=== PATIENT | female | born 1955 | race Caucasian/White ===

== ENCOUNTER → 2018-12-13 | Outpatient (CLI) | payer OTHER ==
--- NOTE | 2018-12-14 00:06 | XR ---
EXAMINATION TYPE: XR chest 2V DATE OF EXAM: 12/13/2018 COMPARISON: 10/29/2014 HISTORY: 63-year-old female preoperative evaluation TECHNIQUE: Frontal and lateral views FINDINGS: Heart normal size. Mild elongation thoracic aorta. Mild interstitial prominence has a chronic appeara nce. On the vasculature within normal limits. No consolidation or pleural effusion. IMPRESSION: No acute cardiopulmonary process.
== END | disposition home or self-care (01) ==
LOC: RADXRYALE 16:20
PROVIDERS: ATTEND Orthopaedic Surgery
DX: Z01.818 Encounter for other preprocedural examination (principal)
CPT/HCPCS: 71046

== ENCOUNTER → 2018-12-28 | Outpatient (CLI) | payer MEDICARE | END | disposition home or self-care (01) | LOC: LABPAT 13:08 | PROVIDERS: ATTEND Orthopaedic Surgery | DX: Z01.812 Encounter for preprocedural laboratory examination (principal) | CPT/HCPCS: 87070 ==

== ENCOUNTER → 2018-12-28 | Outpatient (CLI) | payer MEDICARE ==
--- NOTE | 2018-12-28 14:38 | CT ---
EXAMINATION TYPE: CT chest w con DATE OF EXAM: 12/28/2018 COMPARISON: NONE HISTORY: Aorta disorder. CT DLP: 650.36 mGycm. Automated Exposure Control for Dose Reduction was Utilized. TECHNIQUE: CT scan of the thorax is performed following with IV Contrast, patient injected with 100 mL of Isovue 300. FINDINGS: LUNGS: The lungs are grossly clear, there is no concerning parenchymal mass or nodule identified. T here is no pleural effusion or pneumothorax seen. The tracheobronchial tree is patent. MEDIASTINUM: There are no greater than 1 cm hilar or mediastinal lymph nodes. No pericardial effusi on is seen. Ascending aorta measures up to 3.3 cm in diameter at main pulmonary bifurcation axial i mage 25. OTHER: Occasional diverticula are seen at level of splenic flexure. Slight S-shaped scoliotic curvatu re. A 1.5 cm simple-appearing cyst laterally upper pole of the left kidney is seen. IMPRESSION: No thoracic aortic aneurysm. No suspicious acute pulmonary process.
== END | disposition home or self-care (01) ==
LOC: RADCTMAIN 13:22
PROVIDERS: ATTEND Internal Medicine
DX: I77.9 Disorder of arteries and arterioles, unspecified (principal)
CPT/HCPCS: 82565; 84520; 71260; 36415; Q9967

== ENCOUNTER 2019-01-01 06:12 | Inpatient (IN) | payer MEDICARE, OTHER ==
[2018-12-31 08:27] VITALS: BMI 30.9
--- NOTE | 2018-12-31 13:35 | HP ---
HISTORY AND PHYSICAL CHIEF COMPLAINT: Right knee pain. HISTORY OF PRESENT ILLNESS: The patient is a 63-year-old retired female who presents with progressive right knee pain secondary to osteoarthrosis despite conservative measures. She continues to have pain that limits her normal function and activities. PAST MEDICAL HISTORY: Significant for coronary artery disease, depression and hypercholesterolemia. PAST SURGICAL HISTORY: Negative. CURRENT MEDICATIONS: 1. Lipitor. 2. Lunesta. 3. Aspirin. 4. Badin. ALLERGIES: She denies drug allergies. FAMILY HISTORY: Significant for cancer. SOCIAL HISTORY: Negative for current tobacco or alcohol use. REVIEW OF SYSTEMS: Sixteen-point review of systems otherwise reviewed and is noncontributory. PHYSICAL EXAMINATION: On examination, the patient is approximately 5 feet 3 inches, 173 pounds of endomorphic habitus. HEENT exam is nonfocal. Neck is supple. She has painless passive motion of the right hip. Straight leg raise is negative. Active motion right knee -10 to 125 degrees of flexion. She is tender about the medial joint line. She has mild effusion. Collaterals are stable, Coleen is negative, Janene's is equivocal. She has genu varum alignment. Her distal neurovascular exam appears intact in the right lower extremity. Previous x-rays of the right knee obtained in the office show severe medial compartment osteoarthrosis. IMPRESSION: 1. Right knee severe medial compartment osteoarthrosis. 2. History of coronary artery disease. RECOMMENDATIONS: I talked to the patient at length regarding her condition and treatment options. At this point, she is quite symptomatic and limited because of pain related to her osteoarthrosis despite conservative measures. After thorough discussion, she opts to proceed with surgery. We will plan to proceed with right total knee arthroplasty. We will institute DVT prophylaxis postoperatively. MMODL / IJN: [id number] /
[~2019-01-01 06:12] MED LIST: ACETAMINOPHEN TAB 500 MG TAB PO ONE; LIDOCAINE 1% 20 ML VIAL (10MG/ML) FOR IV START INTRADERMA PRN; MELOXICAM 7.5 MG TAB PO ONE; TRANEXAMIC ACID 1,000 MG in SODIUM CHLORIDE 0.9% 100 ML IVPB ONE; ceFAZolin IN SWFI 2 GM/20 ML SYRINGE IVP ONE
[2019-01-01 07:28] LABS: Basophils % (A) 1 %; Eosinophils # (A) 0.2 k/uL (0-0.7); Eosinophils % (A) 3 %; HCT 38.9 % (34.0-46.0); HGB 13.1 gm/dL (11.4-16.0); Lymphocytes # (A) 1.3 k/uL (1.0-4.8); Lymphocytes % (A) 24 %; MCH 29.4 pg (25.0-35.0); MCHC 33.6 g/dL (31.0-37.0); MCV 87.4 fL (80.0-100.0); Mean Platelet Volume 7.5; Monocytes # (A) 0.3 k/uL (0-1.0); Monocytes % (A) 5 %; Neutrophils # (A) 3.7 k/uL (1.3-7.7); Neutrophils % (A) 65 %; Platelet Count 225 k/uL (150-450); RBC 4.45 m/uL (3.80-5.40); RDW 13.8 % (11.5-15.5); WBC 5.6 k/uL (3.8-10.6)
[2019-01-01 07:28] LABS: Appearance,Urine Clear (Clear); Bilirubin,Urine Negative (Negative); Blood,Urine Negative (Negative); Color,Urine Light Yellow; Glucose,Urine (UA) Negative (Negative); Ketones,Urine Negative (Negative); Leukocyte Esterase,Urine Small (Negative); Mucus,Urine Rare /hpf; Nitrite,Urine Negative (Negative); Protein,Urine Negative (Negative); RBC,Urine 1 /hpf (0-5); Specific Gravity,Urine 1.012 (1.001-1.035); Squamous Epithelial Cell,Urine <1 /hpf (0-4); Urobilinogen,Urine <2.0 mg/dL (<2.0); WBC,Urine 6 /hpf (0-5)
[2019-01-01 07:31] LABS: INR 0.9 (<1.2); Partial Thromboplastin Time 24.6 sec (22.0-30.0); Prothrombin Time 9.6 sec (9.0-12.0)
[2019-01-01 07:42] LABS: Albumin 4.1 g/dL (3.5-5.0); Calcium 9.6 mg/dL (8.4-10.2); Potassium 4.3 mmol/L (3.5-5.1); Total Bilirubin 0.3 mg/dL (0.2-1.3); Total Protein 6.6 g/dL (6.3-8.2)
[2019-01-01] MEDS ORDERED: MIDAZOLAM PF (FBP) 2 MG/2 ML VIAL IVP ONE (07:43)
[2019-01-01] MEDS ORDERED: PROPOFOL 10 MG/ML 20 ML VIAL IV ONE (07:54)
[2019-01-01] MEDS ORDERED: PHENYLEPHRINE-0.9% NACL SYG 1 MG/10 ML SYRINGE ONE (07:54)
[2019-01-01] MEDS ORDERED: SODIUM CHLORIDE 0.9% 100 ML BAG ONE (07:54)
[2019-01-01] MEDS ORDERED: TRANEXAMIC ACID 1,000 MG/10 ML VIAL ONE (07:54)
[2019-01-01] MEDS ORDERED: MIDAZOLAM 2 MG/2 ML VIAL ONE (07:54)
[2019-01-01] MEDS ORDERED: fentaNYL (PF) 50 MCG/ML 2 ML AMP ONE (07:54)
[2019-01-01] MEDS ORDERED: DEXAMETHASONE SOD PHOSPHATE 10 MG/ML 1 ML VIAL IV ONE (07:56)
[2019-01-01] MEDS ORDERED: ONDANSETRON 4 MG/2 ML VIAL IVP ONE (07:56)
[2019-01-01] MEDS: LACTATED RINGERS 1,000 ML IV SCH ×2 (07:56→14:30)
[2019-01-01] MEDS ORDERED: ceFAZolin 3,000 MG in SODIUM CHLORIDE 0.9% IRRIGATIO 3,000 ML IRRIGATION ONE (08:00)
[2019-01-01] MEDS ORDERED: ROPIVACAINE 246.25 MG, EPINEPHrine 0.5 MG, KETOROLAC 30 MG, cloNIDine HCL/PF 80 MCG, WA... MISCELLANE ONE ×5 (08:09)
[2019-01-01] MEDS ORDERED: LACTATED RINGERS 1,000 ML IV ONE (09:15)
--- NOTE | 2019-01-01 09:16 | P.ANPRN ---
Procedure Note - Anesthesia - Nerve Block Performed Right Adductor Canal Infusion Time Out Performed: Yes Date of Procedure: 01/01/19 Procedure Start Time: 07:43 Procedure Stop Time: 07:53 Location of Patient Procedure: PreOp Indication: Acute Post-Operative Pain, Requested by physician Sedation Type: Sedate with meaningful contact maintained Preparation: Sterile Prep, Sterile Dressing Position: Supine Catheter: Indwelling Needle Types: Pajunk Needle Gauge: 21 Technique: Ultrasound (ropi .5% 20cc) Blood Aspirated: No Pain Paresthesia on Injection Noted: No Resistance on Injection: Normal Events: Uneventful and Well Tolerated
[2019-01-01] MEDS ORDERED: ROPIVACAINE 1,100 MG, SODIUM CHLORIDE 0.9% 500 ML 330 ML MISCELLANE PRN ×2 (09:17)
[2019-01-01] MEDS ORDERED: NALOXONE 0.4 MG/ML 1 ML VIAL IV PRN (09:34)
[2019-01-01] MEDS ORDERED: MAGNESIUM HYDROXIDE 2,400 MG/10 ML CUP PO PRN (09:34)
[2019-01-01] MEDS ORDERED: HYDROcodone/APAP 5-325MG 1 EACH TAB PO PRN (09:34)
--- NOTE | 2019-01-01 10:05 | P.OP ---
Date of Procedure: 01/01/19 Preoperative Diagnosis: Right knee severe tricompartmental osteoarthrosis Postoperative Diagnosis: Same Procedure(s) Performed: Right total knee arthroplastycementedcruciate retaining Implants: [employer] journey 2 size 5 cemented femoral component, size 4 cemented tibial component, 9 mm articular surface, 29 mm cemented patellar component. This is a cruciate retaining implant. Anesthesia: regional, local, spinal Surgeon: Aakash Peña Insurance Investigator #1: Amauri Tiwari Estimated Blood Loss (ml): 50 Pathology: other (Bone fragments) Condition: stable Disposition: PACU Indications for Procedure: The patient's a 63-year-old female presents with progressive right knee pain secondary to osteoarthrosis despite conservative measures. A discussion of the risks and benefits of operative intervention versus continued conservative measures was made with patient. She opted to proceed with surgery. Operative risks to include infection, neurovascular injury, development of blood clots, possible component loosening, possible component failure and need for subsequent procedures was discussed. Informed consent was obtained. Operative Findings: As below Description of Procedure: The patient was brought to the operating room, and after induction of spinal anesthesia the right lower extremity was prepped and draped in a normal fashion. The tourniquet was inflated to 270 mmHg. A longitudinal incision extending 3 finger breaths above the superior pole of the patella extending to the medial aspect the tibial tubercle was then made. The skin and subcutaneous tissues were divided sharply. Electrocautery was used for hemostasis. A medial parapatellar arthrotomy was then performed. The medial soft tissues to include the superficial and deep portions of the medial collateral ligament as well as the medial hamstring tendons were elevated subperiosteally. The proximal medial tibia osteophytes were carefully removed. The patella was everted. The knee was flexed. A portion of the retropatellar fat pad was excised sharply. The anterior cruciate ligament was sacrificed. A starting hole was made in the distal femur 1 cm anterior to the posterior cruciate origin. An intramedullary femoral guide was gently inserted planning on 5 valgus distal cut with 9 mm distal resection. The cutting block was pinned in place. The distal cut was then made. The posterior referencing sizing guide was utilized. 3 of external rotation was built into the system and verified off the trans- epicondylar axis and the posterior condyles. I felt size 5 was most appropriate. The cutting block was pinned in place. The anterior, posterior, and chamfer cuts were then made. The bone fragments were removed. The trial size 5 femoral component was then placed and was fully seated. There was good anterior to posterior and medial to lateral fit. The distal peg holes were then drilled. The trial component was then removed. Attention was then paid towards preparing the proximal tibia. An extra medullary guide was utilized in line with the tibial shaft and second metatarsal distally. A 3 posterior slope was planned. I planned on 2 mm resection from the medial compartment. The cutting block was pinned in place. The proximal tibial cut was then made. The bone was removed in one fragment. The remnants of the medial and lateral menisci were excised the capsule junction with electrocautery. The tibia sized most appropriately at size 4. The posterior osteophytes off the distal femur were carefully removed with a curved osteotome. The trial tibial and femoral components were placed along with a 9 millimeters articular surface. I was able to obtain full flexion and extension with good stability with varus and valgus stress. After several flexion and extension cycles, the tibial rotation was marked with electrocautery in line with the medial one third of the tibial tubercle. Attention was then paid towards preparing the patella. A patella reamer was utilized taking this down to 14 mm of bone stock. A good flush cut was made. The patella sized most appropriately at 29 millimeters. The peg holes were then drilled. The trial component was placed. The knee was taken through a range of motion. I had good patellofemoral tracking with no hands technique. The trial components were then removed. The tibia was prepared in the appropriate rotation with appropriate drill and keel punch. The flexion and extension gaps were checked and felt to be symmetric. The posterior soft tissues were injected with ropivacaine. The bony surfaces were prepared with pulsatile lavage and dried. The deep tibial component was then cemented in place and was fully seated. Excess cement was removed. The femoral component was cemented in place and was fully seated. Again excess cement was removed. The trial 9 millimeters surface was then inserted in the knee was put in full extension. The patella component was cemented in place. After the cement had sufficiently hardened, the knee was again taken through a range of motion. Again there was good stability in flexion and extension with varus and valgus stress. The trial articular surface was then removed. The final articular surface was placed and was impacted. Care was taken to avoid any soft tissue interposition. Pulsatile lavage was again utilized. The tourniquet was deflated with approximately 55 minutes total tourniquet time. There was minimal drainage therefore a deep drain was not placed. The medial parapatellar arthrotomy was then closed with #2 Ethibond suture. The subcutaneous tissues were reapproximated interrupted 2-0 Vicryl sutures. The skin was reapproximated with 3-0 subarticular strata fix suture. Skin tape and adhesive was applied. A sterile dressing was applied. The patient was then awoken from sedation and transferred to recovery room in good condition. Blood loss was estimated at 50 milliliters. No complications were incurred. Sponge and needle counts were correct at the end the case. Brenton RAHMAN assisted during the major components this case to include exposure, bone resection, and implantation.
--- NOTE | 2019-01-01 10:45 | XR ---
Limited right knee HISTORY: Status post right knee arthroplasty 2 views of the right knee Patient is status post right knee arthroplasty. There is anatomic alignment. Lucency in the soft tiss ues is postoperative. IMPRESSION: Orthopedic follow-up.
[2019-01-01] MEDS: HYDROcodone/APAP 5-325MG 1 EACH TAB PO PRN ×2 (12:17→14:27)
[2019-01-01] MEDS: ONDANSETRON 4 MG/2 ML VIAL IVP PRN ×2 (12:18→21:01)
[2019-01-01] MEDS ORDERED: TEMAZEPAM 15 MG CAP PO PRN (15:39)
--- NOTE | 2019-01-01 15:45 | P.CONS ---
History of Present Illness - Reason for Consult Perioperative complication management - History of Present Illness Patient the was admitted for right knee arthroplasty and status post right knee arthroplasty postoperative day 0. Patient denied any fever chills nausea vomiting abdominal pain. Patient is on lithium total of 900 mg obtain a lithium level. Review of Systems REVIEW OF SYSTEMS: CONSTITUTIONAL: No fever, no malaise, no fatigue. HEENT: No recent visual problems or hearing problems. Denied any sore throat. CARDIOVASCULAR: No chest pain, orthopnea, PND, no palpitations, no syncope. PULMONARY: No shortness of breath, no cough, no hemoptysis. GASTROINTESTINAL: No diarrhea, no nausea, no vomiting, no abdominal pain. NEUROLOGICAL: No headaches, no weakness, no numbness. HEMATOLOGICAL: Denies any bleeding or petechiae. GENITOURINARY: Denies any burning micturition, frequency, or urgency. MUSCULOSKELETAL/RHEUMATOLOGICAL: Denies any joint pain, swelling, or any muscle pain. ENDOCRINE: Denies any polyuria or polydipsia. The rest of the 14-point review of systems is negative. Past Medical History Past Medical History: Coronary Artery Disease (CAD), Fibromyalgia, Hyperlipidemia, Osteoarthritis (OA), Thyroid Disorder Additional Past Medical History / Comment(s): spinal stenosis, hx IBS, migraine x 1 yrs ago, oxx palpitations, hiatal hernia, diverticulitis, hx hyperthyroid, recurrent UTI's- on rx for recent UTI History of Any Multi-Drug Resistant Organisms: None Reported Past Surgical History: No Surgical Hx Reported Additional Past Surgical History / Comment(s): colonoscopy, grzegorz cataracts Past Anesthesia/Blood Transfusion Reactions: No Reported Reaction Past Psychological History: Anxiety, Bipolar, Depression, PTSD Smoking Status: Former smoker Past Alcohol Use History: Occasional Additional Past Alcohol Use History / Comment(s): quit smoking 20 yrs, smoked on and off for 4-6 yrs Past Drug Use History: None Reported - Past Family History Father Family Medical History: Cancer Mother Family Medical History: Cancer Medications and Allergies Home Medications Medication Instructions Recorded Confirmed Type Atorvastatin Calcium [Lipitor] 20 mg PO DAILY 10/29/14 12/31/18 History [place] Carbonate [[place] 300 mg PO QAM 06/07/17 01/01/19 History Carbonate ER] Bactrim(Dose Unknown) 2 tab PO DAILY 12/31/18 12/31/18 History Ergocalciferol (Vitamin D2) 50,000 unit PO MO 12/31/18 12/31/18 History [Vitamin D2] Eszopiclone [Lunesta] 2 mg PO HS PRN 12/31/18 12/31/18 History Hyoscyamine Sulfate [Levsin] 0.25 mg PO DAILY PRN 12/31/18 12/31/18 History [place] Carbonate 600 mg PO HS 12/31/18 12/31/18 History Multivitamins, Thera [Multivitamin 1 tab PO DAILY 12/31/18 12/31/18 History (formulary)] Allergies Allergy/AdvReac Type Severity Reaction Status Date / Time morphine Allergy Severe Vomiting Verified 01/01/19 06:52 Penicillins Allergy yeast Verified 01/01/19 06:52 infection Physical Exam Vitals: Vital Signs Temp Pulse Pulse Resp BP BP Pulse Ox 01/01/19 15:25 15 01/01/19 14:00 73 104/67 01/01/19 13:45 78 105/68 01/01/19 13:15 78 99/52 01/01/19 13:00 69 96/62 01/01/19 12:45 65 103/62 01/01/19 12:30 70 119/72 01/01/19 12:15 64 96/62 01/01/19 11:40 97.7 F 61 15 94/59 99 01/01/19 11:30 60 16 96/51 98 01/01/19 11:15 61 16 94/53 100 01/01/19 11:00 60 16 94/52 100 01/01/19 10:45 59 L 17 87/59 100 01/01/19 10:30 60 15 99/57 100 01/01/19 10:15 59 L 16 94/51 100 01/01/19 09:58 97.2 F L 58 L 16 91/52 100 01/01/19 07:58 55 L 16 112/67 97 01/01/19 07:10 62 17 114/72 97 Intake and Output 01/01/19 01/01/19 01/01/19 06:59 14:59 22:59 Intake Total 1781 Output Total 50 Balance 1731 Intake: IV 1601 Oral 180 Output: Estimated Blood Loss 50 PHYSICAL EXAMINATION: GENERAL: The patient is alert and oriented x3, not in any acute distress. Well developed, well nourished. HEENT: Pupils are round and equally reacting to light. EOMI. No scleral icterus. No conjunctival pallor. Normocephalic, atraumatic. No pharyngeal erythema. No thyromegaly. CARDIOVASCULAR: S1 and S2 present. No murmurs, rubs, or gallops. PULMONARY: Chest is clear to auscultation, no wheezing or crackles. ABDOMEN: Soft, nontender, nondistended, normoactive bowel sounds. No palpable organomegaly. MUSCULOSKELETAL: No joint swelling or deformity. Right knee postsurgical packing EXTREMITIES: No cyanosis, clubbing, or pedal edema. NEUROLOGICAL: Gross neurological examination did not reveal any focal deficits. SKIN: No rashes. Results CBC & Chem 7: 01/01/19 07:13 01/01/19 07:13 Labs: Abnormal Lab Results - Last 24 Hours (Table) 01/01/19 01/01/19 Range/Units 06:55 07:13 Chloride 108 H (98-107) mmol/L Ur Leukocyte Esterase Small H (Negative) Urine WBC 6 H (0-5) /hpf Urine Mucus Rare H (None) /hpf Assessment and Plan Plan: -Right knee arthroplasty: Patient's pain is well-controlled patient is on anticoagulation with Xarelto for DVT prophylaxis. -Bipolar disorder on lithium loculates came levels as mentioned above -Fibromyalgia -Hypothyroidism will also obtain TSH levels because of being on lithium -Hyperlipidemia
[2019-01-01 16:07] LABS: Lithium 0.6 mmol/L
[2019-01-01] MEDS: ceFAZolin IN SWFI 2 GM/20 ML SYRINGE IVP SCH ×2 (16:30→23:37)
[2019-01-01 18:40] LABS: T4, Free (Free Thyroxine) 1.28 ng/dL (0.78-2.19)
[2019-01-01] MEDS ORDERED: LITHIUM CARBONATE 300 MG CAP PO SCH (21:00)
[2019-01-01] MEDS: SENNOSIDES-DOCUSATE SODIUM 1 EACH TAB PO SCH (21:00)
[2019-01-01] MEDS ORDERED: LITHIUM CARBONATE 300 MG PO SCH (21:00)
[2019-01-01] MEDS: LITHIUM CARBONATE ER 300 MG TAB PO SCH (22:23)
[2019-01-01] MEDS: ACETAMINOPHEN TAB 325 MG TAB PO PRN (22:26)
[2019-01-02 07:38] LABS: Basophils % (A) 0 %; Eosinophils % (A) 0 %; HCT 31.9 % (34.0-46.0); HGB 10.6 gm/dL (11.4-16.0); Lymphocytes # (A) 1.6 k/uL (1.0-4.8); Lymphocytes % (A) 14 %; MCH 29.8 pg (25.0-35.0); MCHC 33.2 g/dL (31.0-37.0); MCV 89.7 fL (80.0-100.0); Mean Platelet Volume 7.8; Monocytes # (A) 0.6 k/uL (0-1.0); Monocytes % (A) 5 %; Neutrophils # (A) 8.9 k/uL (1.3-7.7); Neutrophils % (A) 79 %; Platelet Count 198 k/uL (150-450); RBC 3.56 m/uL (3.80-5.40); WBC 11.2 k/uL (3.8-10.6)
[2019-01-02 08:20] LABS: Glucose,Whole Blood 115 mg/dL (75-99)
[2019-01-02] MEDS ORDERED: SODIUM CHLORIDE 0.9% 1,000 ML IV ONE (08:45)
[2019-01-02] MEDS: MELOXICAM 7.5 MG TAB PO SCH (08:51)
[2019-01-02] MEDS: ATORVASTATIN 20 MG TAB PO SCH (08:51)
[2019-01-02] MEDS: ACETAMINOPHEN TAB 325 MG TAB PO PRN ×2 (08:51→16:09)
[2019-01-02] MEDS: RIVAROXABAN 10 MG TAB PO SCH (08:51)
[2019-01-02] MEDS: LITHIUM CARBONATE ER 300 MG TAB PO SCH ×2 (08:53→21:16)
[2019-01-02] MEDS ORDERED: LITHIUM CARBONATE 300 MG CAP PO SCH (09:00)
--- NOTE | 2019-01-02 09:57 | P.PN ---
Progress Note - Text Progress Note Date: 01/02/19 Postoperative day # 1 status post total knee arthroplasty, under spinal anesth esia, and adductor canal catheter placed for postoperative analgesia. Currently on ropivacaine 0.2% 8 mL per hour with continuous infusion. There is no erythema, and there is no tenderness at site of catheter insertion. VAS: 2/10 Breakthrough Meds: When necessary Complications: None . Plan: Plan is to continue: Plans to continue the current settings. Patient will go home as planned.
--- NOTE | 2019-01-02 11:59 | P.PN ---
Subjective Progress Note Date: 01/02/19 Principal diagnosis: Status post right total knee arthroplasty Patient evaluated at bedside, she is resting comfortably. Patient did have an episode of nausea late last night into this morning, she vomited also. Patient's blood pressure also was very low. She's currently receiving a fluid bolus. Patient denies any chest pain or shortness of breath at this time. Objective - Vital Signs Vital signs: Vital Signs Temp 98.6 F 01/02/19 07:00 Pulse 64 01/02/19 08:00 Resp 17 01/02/19 07:00 BP 87/55 01/02/19 08:00 Pulse Ox 98 01/02/19 08:00 Intake & Output 01/01/19 01/02/19 01/02/19 18:59 06:59 18:59 Intake Total 1961 240 Output Total 50 Balance 1911 240 Intake: IV 1601 Oral 360 240 Output: Estimated Blood Loss 50 Other: Voiding Method Toilet # Voids 2 1 - Exam Right lower extremity: Incision is clean, dry, and intact. The exofin fusion tape is in good condition. There is minimal soft tissue swelling and ecchymosis surrounding the medial and lateral aspects of the incision. Calf is soft, no tenderness with palpation. Plantar flexion, dorsiflexion, EHL, FHL are intact. Sensory exam to light touch throughout the extremity is intact, dorsal pedis pulses 2+. - Labs CBC & Chem 7: 01/02/19 06:51 01/01/19 07:13 Labs: Abnormal Lab Results - Last 24 Hours (Table) 01/01/19 01/02/19 01/02/19 Range/Units 07:13 06:51 08:18 WBC 11.2 H (3.8-10.6) k/uL RBC 3.56 L (3.80-5.40) m/uL Hgb 10.6 L (11.4-16.0) gm/dL Hct 31.9 L (34.0-46.0) % Neutrophils # 8.9 H (1.3-7.7) k/uL POC Glucose (mg/dL) 115 H (75-99) mg/dL TSH 5.140 H (0.465-4.680) mIU/L Assessment and Plan Plan: Assessment: Postoperative day #1 status post right total knee arthroplasty Plan: Pain control, hold Fallon at this time, utilize Tramadol and Tylenol GI and DVT prophylaxis, continue current medication Continue work with physical therapy Daily dressing changes/ice and elevate Due to patient's episode of nausea and vomiting along with her blood pressure, we'll make patient inpatient status with plan for discharge home tomorrow Time with Patient: Less than 30
--- NOTE | 2019-01-02 14:24 | P.PN ---
Subjective Patient was dizzy hypotensive give her 1 L bolus of fluid and patient was started on IV normal saline with after which her symptoms improved. Patient is asking Tylenol for pain. Constitutional: Denied any fatigue denied any fever. Cardio vascular: denied any chest pain, palpitations Gastrointestinal denied any nausea vomiting Pulmonary: Denied any shortness of breath cough Neurologic denied any new focal deficits All inpatient medications were reviewed and appropriate changes in these medications as dictated in the interval history and assessment and plan. Objective - Vital Signs Vital signs: Vital Signs Temp 98.3 F 01/02/19 14:19 Pulse 71 01/02/19 14:19 Resp 17 01/02/19 14:19 BP 96/60 01/02/19 14:19 Pulse Ox 95 01/02/19 14:19 Intake & Output 01/01/19 01/02/19 01/02/19 18:59 06:59 18:59 Intake Total 1961 240 0 Output Total 50 Balance 1911 240 0 Intake: IV 1601 Oral 360 240 0 Output: Estimated Blood Loss 50 Other: Voiding Method Toilet # Voids 2 1 - Exam PHYSICAL EXAMINATION: GENERAL: The patient is alert and oriented x3, not in any acute distress. Well developed, well nourished. HEENT: Pupils are round and equally reacting to light. EOMI. No scleral icterus. No conjunctival pallor. Normocephalic, atraumatic. No pharyngeal erythema. No thyromegaly. CARDIOVASCULAR: S1 and S2 present. No murmurs, rubs, or gallops. PULMONARY: Chest is clear to auscultation, no wheezing or crackles. ABDOMEN: Soft, nontender, nondistended, normoactive bowel sounds. No palpable organomegaly. MUSCULOSKELETAL: No joint swelling or deformity. Right knee postsurgical packing EXTREMITIES: No cyanosis, clubbing, or pedal edema. NEUROLOGICAL: Gross neurological examination did not reveal any focal deficits. SKIN: No rashes. - Labs CBC & Chem 7: 01/02/19 06:51 01/01/19 07:13 Labs: Abnormal Lab Results - Last 24 Hours (Table) 01/01/19 01/02/19 01/02/19 Range/Units 07:13 06:51 08:18 WBC 11.2 H (3.8-10.6) k/uL RBC 3.56 L (3.80-5.40) m/uL Hgb 10.6 L (11.4-16.0) gm/dL Hct 31.9 L (34.0-46.0) % Neutrophils # 8.9 H (1.3-7.7) k/uL POC Glucose (mg/dL) 115 H (75-99) mg/dL TSH 5.140 H (0.465-4.680) mIU/L Assessment and Plan Plan: -Right knee arthroplasty: Patient's pain is well-controlled patient is on anticoagulation with Xarelto for DVT prophylaxis. Patient the was dizzy hypotensive fluid resuscitation as mentioned abov -Bipolar disorder on lithium loculates came levels as mentioned above -Fibromyalgia -Hypothyroidism TSH levels are elevated, lithium levels are normal we'll in crease his dose of levothyroxine -Hyperlipidemia
[2019-01-02] MEDS: traMADol 50 MG TAB PO PRN (16:08)
[2019-01-02] MEDS: SODIUM CHLORIDE 0.9% 1,000 ML IV SCH ×2 (16:10→20:24)
[2019-01-02] MEDS: SENNOSIDES-DOCUSATE SODIUM 1 EACH TAB PO SCH (22:53)
[2019-01-03] MEDS: traMADol 50 MG TAB PO PRN ×3 (00:35→20:43)
[2019-01-03] MEDS: SODIUM CHLORIDE 0.9% 1,000 ML IV SCH ×2 (04:04→20:02)
[2019-01-03] MEDS: LACTATED RINGERS 1,000 ML IV SCH (04:05)
[2019-01-03] MEDS: ACETAMINOPHEN TAB 325 MG TAB PO PRN ×2 (05:26→15:42)
[2019-01-03] MEDS: MELOXICAM 7.5 MG TAB PO SCH (08:31)
[2019-01-03] MEDS: ATORVASTATIN 20 MG TAB PO SCH (08:32)
[2019-01-03] MEDS: RIVAROXABAN 10 MG TAB PO SCH (08:32)
[2019-01-03] MEDS: LITHIUM CARBONATE ER 300 MG TAB PO SCH ×2 (08:34→20:44)
--- NOTE | 2019-01-03 10:52 | P.PN ---
Subjective Progress Note Date: 01/03/19 Principal diagnosis: Status post right total knee arthroplasty Patient notes improvement with regards to her pain. She denies any shortness of breath. She notes she did have a low-grade fever last night. Objective - Vital Signs Vital signs: Vital Signs Temp 99.5 F 01/03/19 07:12 Pulse 76 01/03/19 09:00 Resp 15 01/03/19 09:00 BP 124/61 01/03/19 07:12 Pulse Ox 94 L 01/03/19 07:12 Intake & Output 01/02/19 01/03/19 01/03/19 18:59 06:59 18:59 Intake Total 222 840 180 Balance 222 840 180 Intake: Oral 222 840 180 Other: Voiding Method Toilet Toilet Toilet # Voids 2 1 - Exam Right knee incision clean, dry, intact. Clara's negative right lower extremity. Her distal neurovascular exam is intact right lower extremity. - Constitutional General appearance: Present: no acute distress - Labs CBC & Chem 7: 01/02/19 06:51 01/01/19 07:13 Assessment and Plan Assessment: Status post right total knee arthroplasty Plan: At this point we will plan to discharge her home. She is encouraged to use the Tri-[employer] incentive spirometer at home. We will have her keep her wound clean and dry. We will continue anticoagulation for DVT prophylaxis as prescribed. Follow-up in 2 weeks. Time with Patient: Less than 30
--- NOTE | 2019-01-03 14:46 | P.PN ---
Subjective Patient was dizzy hypotensive give her 1 L bolus of fluid and patient was started on IV normal saline with after which her symptoms improved. Patient is asking Tylenol for pain. 01/03/2019 Patient had low-grade fever yesterday because of which will do septic workup including blood culture, UA, chest x-ray chest x-ray is reviewed by me is did not show any pneumonic process if he is negative patient probably can be still discharge but the orthopedic surgery need to look at the wound make sure it's not infected and can be discharged without antibiotics patient was treated for urinary tract infection before hospitalization. Blood cultures were obtained as well Constitutional: Denied any fatigue denied any fever. Cardio vascular: denied any chest pain, palpitations Gastrointestinal denied any nausea vomiting Pulmonary: Denied any shortness of breath cough Neurologic denied any new focal deficits All inpatient medications were reviewed and appropriate changes in these medications as dictated in the interval history and assessment and plan. Objective - Vital Signs Vital signs: Vital Signs Temp 99.5 F 01/03/19 07:12 Pulse 76 01/03/19 09:00 Resp 15 01/03/19 09:00 BP 124/61 01/03/19 07:12 Pulse Ox 94 L 01/03/19 07:12 Intake & Output 01/02/19 01/03/19 01/03/19 18:59 06:59 18:59 Intake Total 222 840 180 Balance 222 840 180 Intake: Oral 222 840 180 Other: Voiding Method Toilet Toilet Toilet # Voids 2 1 - Exam PHYSICAL EXAMINATION: GENERAL: The patient is alert and oriented x3, not in any acute distress. Well developed, well nourished. HEENT: Pupils are round and equally reacting to light. EOMI. No scleral icterus. No conjunctival pallor. Normocephalic, atraumatic. No pharyngeal erythema. No thyromegaly. CARDIOVASCULAR: S1 and S2 present. No murmurs, rubs, or gallops. PULMONARY: Chest is clear to auscultation, no wheezing or crackles. ABDOMEN: Soft, nontender, nondistended, normoactive bowel sounds. No palpable organomegaly. MUSCULOSKELETAL: No joint swelling or deformity. Right knee postsurgical packing EXTREMITIES: No cyanosis, clubbing, or pedal edema. NEUROLOGICAL: Gross neurological examination did not reveal any focal deficits. SKIN: No rashes. - Labs CBC & Chem 7: 01/02/19 06:51 01/01/19 07:13 Assessment and Plan Plan: -Low-grade fever septic workup as mentioned above -Right knee arthroplasty: Patient's pain is well-controlled patient is on anticoagulation with Xarelto for DVT prophylaxis. Patient the was dizzy hypotensive fluid resuscitation as mentioned abov -Bipolar disorder on lithium levels within normal limits and lithium will be continued at present dose -Fibromyalgia -Sick euthyroid syndrome TSH and T4 need to be repeated in about a month -Hyperlipidemia
--- NOTE | 2019-01-03 14:47 | XR ---
EXAMINATION TYPE: XR chest 1V DATE OF EXAM: 01/03/2019 CLINICAL HISTORY: Fever progress study. TECHNIQUE: Single AP portable upright view of the chest is obtained. COMPARISON: Chest x-ray from December 13, 2018. CT chest December 28, 2018 FINDINGS: Lungs remain clear without new focal airspace opacity, pleural effusion, or pneumothorax s een bilaterally. Cardiac silhouette size remains within normal limits. Osseous structures are intact. IMPRESSION: No new acute infiltrate is present.
[2019-01-03] MEDS: SENNOSIDES-DOCUSATE SODIUM 1 EACH TAB PO SCH (20:45)
[2019-01-04] MEDS: ACETAMINOPHEN TAB 325 MG TAB PO PRN (01:08)
[2019-01-04] MEDS: SODIUM CHLORIDE 0.9% 1,000 ML IV SCH ×3 (03:26→22:01)
[2019-01-04] MEDS: LACTATED RINGERS 1,000 ML IV SCH (05:35)
[2019-01-04] MEDS: ATORVASTATIN 20 MG TAB PO SCH (08:19)
[2019-01-04] MEDS: MELOXICAM 7.5 MG TAB PO SCH (08:19)
[2019-01-04] MEDS: RIVAROXABAN 10 MG TAB PO SCH (08:20)
[2019-01-04] MEDS: LITHIUM CARBONATE ER 300 MG TAB PO SCH ×2 (08:21→22:01)
[2019-01-04] MEDS: traMADol 50 MG TAB PO PRN ×3 (08:23→22:00)
[2019-01-04 09:57] LABS: Basophils % (A) 0 %; Eosinophils # (A) 0.2 k/uL (0-0.7); Eosinophils % (A) 2 %; HCT 34.9 % (34.0-46.0); HGB 11.2 gm/dL (11.4-16.0); Lymphocytes # (A) 1.3 k/uL (1.0-4.8); Lymphocytes % (A) 13 %; MCH 29.3 pg (25.0-35.0); MCHC 32.2 g/dL (31.0-37.0); Mean Platelet Volume 7.9; Monocytes # (A) 0.6 k/uL (0-1.0); Monocytes % (A) 6 %; Neutrophils # (A) 7.8 k/uL (1.3-7.7); Neutrophils % (A) 78 %; Platelet Count 226 k/uL (150-450); RBC 3.84 m/uL (3.80-5.40); RDW 14.4 % (11.5-15.5)
--- NOTE | 2019-01-04 10:15 | P.PN ---
Progress Note - Text Progress Note Date: 01/04/19 S: The patient has no complaints. They deny shortness of breath or chest pain. O: Vital signs stable, T-max last evening 100.5, currently afebrile Homans negative right lower extremity Distal neurovascular status intact in the operative extremity Incision clean, dry , and intact, no erythema surrounding the wound. Mild erythema posterior medial aspect right knee possibly secondary to tape irritation WBC count 10.0 A/P: Postoperative day 3 status post right total knee arthroplasty Medical management DVT prophylaxis Fever of unknown originhistory of recurrent UTI. At this point I see no evidence of infectious process involving her right knee. We will obtain a Doppler to rule out DVT. If that is normal, we will await medicine input and anticipate possible discharge home this afternoon.
--- NOTE | 2019-01-04 11:20 | US ---
EXAMINATION TYPE: US venous doppler duplex LE RT DATE OF EXAM: 01/04/2019 10:55 AM COMPARISON: NONE CLINICAL HISTORY: Fever of unknown origin.Post op right knee surgery SIDE PERFORMED: Right TECHNIQUE: The lower extremity deep venous system is examined utilizing real time linear array sonog owen with graded compression, doppler sonography and color-flow sonography. VESSELS IMAGED: External Iliac Vein (EIV) Common Femoral Vein Deep Femoral Vein Greater Saphenous Vein * Femoral Vein Popliteal Vein Small Saphenous Vein * Proximal Calf Veins (* superficial vessels) There is normal flow, compressibility, vascular waveforms Right Leg: Negative for DVT No evidence of DVT right leg. IMPRESSION: No evident deep venous thrombosis at or above the right knee.
--- NOTE | 2019-01-04 15:02 | P.PN ---
Subjective Patient was dizzy hypotensive give her 1 L bolus of fluid and patient was started on IV normal saline with after which her symptoms improved. Patient is asking Tylenol for pain. 01/03/2019 Patient had low-grade fever yesterday because of which will do septic workup including blood culture, UA, chest x-ray chest x-ray is reviewed by me is did not show any pneumonic process if he is negative patient probably can be still discharge but the orthopedic surgery need to look at the wound make sure it's not infected and can be discharged without antibiotics patient was treated for urinary tract infection before hospitalization. Blood cultures were obtained as well 01/04/2019 patient had multiple episodes of fevers as today blood cultures also pending UA repeat 1 is not available at this time patient will be started on Rocephin and infectious disease was consulted. Patient doesn't have any DVT although didn't examine the surgical wound as it was postsurgically packed by orthotics surgery Constitutional: Denied any fatigue denied any fever. Cardio vascular: denied any chest pain, palpitations Gastrointestinal denied any nausea vomiting Pulmonary: Denied any shortness of breath cough Neurologic denied any new focal deficits All inpatient medications were reviewed and appropriate changes in these medications as dictated in the interval history and assessment and plan. Objective - Vital Signs Vital signs: Vital Signs Temp 99 F 01/04/19 14:17 Pulse 96 01/04/19 14:17 Resp 14 01/04/19 14:17 BP 113/72 01/04/19 14:17 Pulse Ox 97 01/04/19 14:17 Intake & Output 01/03/19 01/04/19 01/04/19 18:59 06:59 18:59 Intake Total 580 500 476 Balance 580 500 476 Intake: Intake, IV Titration 400 Amount Sodium Chloride 0.9% 1, 400 000 ml @ 100 mls/hr IV . Q10H [facility] Rx#:[id number] Oral 180 500 476 Other: Voiding Method Toilet Toilet Toilet # Voids 1 1 - Exam PHYSICAL EXAMINATION: GENERAL: The patient is alert and oriented x3, not in any acute distress. Well developed, well nourished. HEENT: Pupils are round and equally reacting to light. EOMI. No scleral icterus. No conjunctival pallor. Normocephalic, atraumatic. No pharyngeal erythema. No th yromegaly. CARDIOVASCULAR: S1 and S2 present. No murmurs, rubs, or gallops. PULMONARY: Chest is clear to auscultation, no wheezing or crackles. ABDOMEN: Soft, nontender, nondistended, normoactive bowel sounds. No palpable organomegaly. MUSCULOSKELETAL: No joint swelling or deformity. Right knee postsurgical packing EXTREMITIES: No cyanosis, clubbing, or pedal edema. NEUROLOGICAL: Gross neurological examination did not reveal any focal deficits. SKIN: No rashes. - Labs CBC & Chem 7: 01/04/19 08:55 01/01/19 07:13 Labs: Abnormal Lab Results - Last 24 Hours (Table) 01/04/19 Range/Units 08:55 Hgb 11.2 L (11.4-16.0) gm/dL Neutrophils # 7.8 H (1.3-7.7) k/uL Microbiology - Last 24 Hours (Table) 01/03/19 12:52 Urine Culture - Preliminary Urine,Clean Catch Assessment and Plan Plan: -Low-grade fever septic workup as mentioned above, DVT was ruled out source of infection is not clear patient was started on empiric Rocephin awaiting blood cultures infectious disease was consult and will monitor 1 more day -Right knee arthroplasty: Patient's pain is well-controlled patient is on anticoagulation with Xarelto for DVT prophylaxis. Patient the was dizzy hypotensive fluid resuscitation as mentioned abov -Bipolar disorder on lithium levels within normal limits and lithium will be continued at present dose -Fibromyalgia -Sick euthyroid syndrome TSH and T4 need to be repeated in about a month -Hyperlipidemia
--- NOTE | 2019-01-04 21:57 | P.CONS ---
History of Present Illness - Reason for Consult Consult date: 01/04/19 Fever Requesting physician: Maya Maldonado - Chief Complaint Fever times 2 days - History of Present Illness Patient is a 63-year-old female with advanced structure and his right knee electively admitted to the hospital on 01/01/2019 for right knee arthroplas ty patient had did have the procedure done and did well over the next 1 day however on January 03 the patient did have low-grade fever 100.7 and at the field 100.5 this morning that prompted this infectious disease consultation The patient had denies having any headache rigors or chills no chest pain s hortness of breath or cough no nausea no vomiting no rebound pain or any diarrhea patient right knee pain is currently controlled, the patient did have mildly positive UA on admission and did received perioperative antibiotics Rocephin was added today along with infectious disease consultation, patient did have incentive spirometry but has not been very compliant with his chest x-ray this morning No acute infiltrate Review of Systems Positive points has been mentioned in HPI rest of the systems are negative Past Medical History Past Medical History: Coronary Artery Disease (CAD), Fibromyalgia, Hyperlipidemia, Osteoarthritis (OA), Thyroid Disorder Additional Past Medical History / Comment(s): spinal stenosis, hx IBS, migraine x 1 yrs ago, oxx palpitations, hiatal hernia, diverticulitis, hx hyperthyroid, recurrent UTI's- on rx for recent UTI History of Any Multi-Drug Resistant Organisms: None Reported Past Surgical History: No Surgical Hx Reported Additional Past Surgical History / Comment(s): colonoscopy, grzegorz cataracts Past Anesthesia/Blood Transfusion Reactions: No Reported Reaction Past Psychological History: Anxiety, Bipolar, Depression, PTSD Smoking Status: Former smoker Past Alcohol Use History: Occasional Additional Past Alcohol Use History / Comment(s): quit smoking 20 yrs, smoked on and off for 4-6 yrs Past Drug Use History: None Reported - Past Family History Father Family Medical History: Cancer Mother Family Medical History: Cancer Medications and Allergies Home Medications Medication Instructions Recorded Confirmed Type Atorvastatin Calcium [Lipitor] 20 mg PO DAILY 10/29/14 01/03/19 History Tiburones Carbonate [Tiburones 300 mg PO QAM 06/07/17 01/03/19 History Carbonate ER] Bactrim(Dose Unknown) 2 tab PO DAILY 12/31/18 01/03/19 History Ergocalciferol (Vitamin D2) 50,000 unit PO MO 12/31/18 01/03/19 History [Vitamin D2] Eszopiclone [Lunesta] 2 mg PO HS PRN 12/31/18 01/03/19 History Hyoscyamine Sulfate [Levsin] 0.25 mg PO DAILY PRN 12/31/18 01/03/19 History Tiburones Carbonate 600 mg PO HS 12/31/18 01/03/19 History Multivitamins, Thera [Multivitamin 1 tab PO DAILY 12/31/18 01/03/19 History (formulary)] Apixaban [Eliquis] 2.5 mg PO BID #60 tab 01/02/19 Rx traMADol HCl [Ultram] 50 mg PO Q6H PRN #28 tab 01/02/19 Rx Allergies Allergy/AdvReac Type Severity Reaction Status Date / Time morphine Allergy Severe Vomiting Verified 01/03/19 11:38 Penicillins Allergy yeast Verified 01/03/19 11:38 infection Physical Exam Vitals: Vital Signs Temp Pulse Pulse Resp BP Pulse Ox 01/04/19 08:00 76 14 01/04/19 07:00 99 F 76 14 109/69 95 01/04/19 02:01 100.5 F H 78 18 113/71 95 01/03/19 21:51 98.9 F 69 18 108/68 95 01/03/19 15:18 100.8 F H 76 123/69 99 Intake and Output 01/03/19 01/04/19 01/04/19 22:59 06:59 14:59 Intake Total 500 296 Balance 500 296 Intake: Oral 500 296 Other: Voiding Method Toilet Toilet # Voids 2 1 GENERAL DESCRIPTION: An elderly female lying in bed, no distress. No tachypnea or accessory muscle of respiration use. HEENT: Shows Pallor , no scleral icterus. Oral mucous membrane is dry. No pharyngeal erythema or thrush NECK: Trachea central, no thyromegaly. LUNGS: Unlabored breathing. Decreased In the Base. No wheeze or crackle. HEART: S1, S2, regular rate and rhythm. No loud murmur ABDOMEN: Soft, no tenderness , guarding or rigidity, no organomegaly EXTREMITIES: Right knee incision is currently intact minimal swelling no redness no drainage SKIN: No rash, no masses palpable. NEUROLOGICAL: The patient is awake, alert, oriented x3, mood and affect normal. Results CBC & Chem 7: 01/04/19 08:55 01/01/19 07:13 Labs: Abnormal Lab Results - Last 24 Hours (Table) 01/04/19 Range/Units 08:55 Hgb 11.2 L (11.4-16.0) gm/dL Neutrophils # 7.8 H (1.3-7.7) k/uL Microbiology - Last 24 Hours (Table) 01/03/19 12:52 Urine Culture - Preliminary Urine,Clean Catch Assessment and Plan Assessment: 1-patient with low-grade fever. In this patient who did have right knee arthroplasty for advanced ostial arthritis with associated the fever either reactive versus atelectasis versus a mild UTI and the patient did have mildly positive UA on admission 2-Patient with multiple antibiotics ALLERGIES that will limit the number of antibiotic safe to use Plan: 1-repeat a UA and a culture 2-patient advised to use incentive spirometry every hour on the hour while awake 3-continue with empiric Rocephin 1 g daily while waiting for the cultures to finalize Will follow on a clinical condition and cultures to further adjust medication if needed Thank you for this consultation will follow this patient along with you Time with Patient: Greater than 30
[2019-01-04] MEDS: SENNOSIDES-DOCUSATE SODIUM 1 EACH TAB PO SCH (22:01)
[2019-01-05] MEDS: LACTATED RINGERS 1,000 ML IV SCH (04:11)
[2019-01-05] MEDS: SODIUM CHLORIDE 0.9% 1,000 ML IV SCH ×2 (08:08→14:29)
[2019-01-05] MEDS: RIVAROXABAN 10 MG TAB PO SCH (08:15)
[2019-01-05] MEDS: ATORVASTATIN 20 MG TAB PO SCH (08:15)
[2019-01-05] MEDS: MELOXICAM 7.5 MG TAB PO SCH (08:15)
[2019-01-05] MEDS: LITHIUM CARBONATE ER 300 MG TAB PO SCH (08:15)
[2019-01-05] MEDS: traMADol 50 MG TAB PO PRN (12:20)
[2019-01-05 15:00] VITALS: BP 112/67; PULSE 73; RESP 15; TEMP 98.8
--- NOTE | 2019-01-05 15:02 | P.PN ---
Subjective Patient was dizzy hypotensive give her 1 L bolus of fluid and patient was started on IV normal saline with after which her symptoms improved. Patient is asking Tylenol for pain. 01/03/2019 Patient had low-grade fever yesterday because of which will do septic workup including blood culture, UA, chest x-ray chest x-ray is reviewed by me is did not show any pneumonic process if he is negative patient probably can be still discharge but the orthopedic surgery need to look at the wound make sure it's not infected and can be discharged without antibiotics patient was treated for urinary tract infection before hospitalization. Blood cultures were obtained as well 01/04/2019 patient had multiple episodes of fevers as today blood cultures also pending UA repeat 1 is not available at this time patient will be started on Rocephin and infectious disease was consulted. Patient doesn't have any DVT although didn't examine the surgical wound as it was postsurgically packed by orthotics surgery 01/05/2019 Patient's fevers resolved clear-cut evidence of infection patient probably will be discharged on empiric antibiotics as recommended by infectious disease mostly Ceftin. Constitutional: Denied any fatigue denied any fever. Cardio vascular: denied any chest pain, palpitations Gastrointestinal denied any nausea vomiting Pulmonary: Denied any shortness of breath cough Neurologic denied any new focal deficits All inpatient medications were reviewed and appropriate changes in these medications as dictated in the interval history and assessment and plan. Objective - Vital Signs Vital signs: Vital Signs Temp 98.8 F 01/05/19 15:00 Pulse 73 01/05/19 15:00 Resp 15 01/05/19 15:00 BP 112/67 01/05/19 15:00 Pulse Ox 98 01/05/19 15:00 Intake & Output 01/04/19 01/05/19 01/05/19 18:59 06:59 18:59 Intake Total 476 968 Balance 476 968 Intake: Intake, IV Titration 50 Amount cefTRIAXone 1 gm In 50 Sodium Chloride 0.9% 50 ml @ 100 mls/hr IVPB Q24HR [facility] Rx#:[id number] Oral 476 918 Other: Voiding Method Toilet Toilet Toilet # Voids 1 2 - Exam PHYSICAL EXAMINATION: GENERAL: The patient is alert and oriented x3, not in any acute distress. Well developed, well nourished. HEENT: Pupils are round and equally reacting to light. EOMI. No scleral icterus. No conjunctival pallor. Normocephalic, atraumatic. No pharyngeal erythema. No thyromegaly. CARDIOVASCULAR: S1 and S2 present. No murmurs, rubs, or gallops. PULMONARY: Chest is clear to auscultation, no wheezing or crackles. ABDOMEN: Soft, nontender, nondistended, normoactive bowel sounds. No palpable organomegaly. MUSCULOSKELETAL: No joint swelling or deformity. Right knee postsurgical packing EXTREMITIES: No cyanosis, clubbing, or pedal edema. NEUROLOGICAL: Gross neurological examination did not reveal any focal deficits. SKIN: No rashes. - Labs CBC & Chem 7: 01/04/19 08:55 01/01/19 07:13 Labs: Microbiology - Last 24 Hours (Table) 01/03/19 12:52 Urine Culture - Final Urine,Clean Catch 01/03/19 13:04 Blood Culture - Preliminary Blood No Growth after 24 hours Assessment and Plan Plan: -Low-grade fever septic workup as mentioned above, DVT was ruled out source of infection is not clear patient was started on empiric Rocephin, blood cultures were negative infectious disease evaluated the patient patient was discharged on Ceftin -Right knee arthroplasty: Patient's pain is well-controlled patient is on anticoagulation with Xarelto for DVT prophylaxis. -Bipolar disorder on lithium levels within normal limits and lithium will be co ntinued at present dose -Fibromyalgia -Sick euthyroid syndrome TSH and T4 need to be repeated in about a month -Hyperlipidemia
--- NOTE | 2019-01-05 16:30 | PN ---
PROGRESS NOTE DATE OF SERVICE: 01/05/2019. REASON FOR FOLLOW UP: Fever, possible UTI. INTERVAL HISTORY: The patient is currently afebrile. The patient has been breathing comfortably. Denies having any chest pain or any cough. No abdominal pain. No diarrhea and no urinary symptoms currently. PHYSICAL EXAMINATION: Blood pressure 116/68 with a pulse of 68, temperature 98.2. She is 95% on room air. General description is an elderly female lying in bed in no distress. Respiratory system: Unlabored breathing. Clear to auscultation anteriorly. Heart S1, S2. Regular rate and rhythm. Abdomen soft, no tenderness. LABS: No new labs have been obtained today. Blood culture has been negative. The repeat urine culture was ordered on January 04, not collected. DIAGNOSTIC IMPRESSION AND PLAN: Patient with low-grade fever post right knee replacement, question of possible reactive versus a mild UTI or atelectasis. The patient did have some urinary symptoms and did have overall improvement on Rocephin to finish a short course of oral Ceftin. Prescription has been sent to the pharmacy. Patient has been advised if continued fever or change in clinical condition to let us know right away. MMODL / IJN: [id number] /
--- NOTE | 2019-01-08 09:56 | P.DS ---
Providers Date of admission: 01/01/2019 Expected date of discharge: 01/05/19 Attending physician: Aakash Peña Consults: 01/01/19 09:36 Consult Physician Routine Consulting Provider: Angélica Ng Reason/Comments: Medical Management Do you want consulting provider notified?: Yes Primary care physician: Angélica Ng Hospital Course: Date of admission: 01/01/2019 Date of discharge: 01/05/2019 Admission diagnosis: Status post right total knee arthroplasty Discharge diagnosis: Same Attending physician: Dr. Peña Surgical procedures: Right total knee arthroplasty Brief history: Patient is a 63-year-old female with a history of progressive primary right knee osteoarthritis. At this point patient has failed conservative treatment measures and has opted to proceed with a elective right total knee arthroplasty. Hospital course: Details of patient's surgery can be found in operative report. Patient tolerated the procedure well and was subsequently transported to orthopedic floor. Patient's orthopeidc and medical care was provided daily. Patient had daily laboratory tests performed for evaluation of overall blood counts. Patient had daily physical therapy to include strengthening range of motion as well as education with walker ambulation. Patient had daily CPM usage as part of their physical therapy program. Patient was treated with Xarelto for their postoperative DVT prophylaxis during their inpatient stay. Patient was noted to have a relatively uneventful postoperative course. Patient reported satisfactory pain control with oral pain medications by postoperative day 0. Patient showed satisfactory progress with physical therapy. Patient moved steadily through the program and had no difficulty meeting the goals by postoperative day 4. Given patient's otherwise satisfactory course and having met physical therapy goals, plan is to discharge patient home on postoperative day 4. Discharge condition/disposition: Patient will be discharged home in stable condition. Discharge medications: Instructions are given on resumption of patient's normal daily medications per primary care recommendation, in addition patient will be prescribed Ceftin, tramadol 50 mg, Xarelto 10 mg. Discharge instructions: 1. Wound care and infection precautions, keep incision dry and covered while showering, no lotions, creams, moisturizers. No soaking, tubs, pools, hottubs. Do not scrub over the incision. 2. Weight-bear as tolerated with walker / cane until follow-up. 3. Ice and elevate when necessary. Do not exceed 20 minutes per hour with ice pack. 4. Utilize compression sleeve until seen at first follow up appointment. 5. Visiting nursing care. 6. Home physical therapy including home CPM. 7. Pain meds and anticoagulants per prescription. 8. Pain medication has potential to cause constipation. Increase oral fluid and fiber intake. Contact primary care provider if you have not had a bowel movement within 48 hours after discharge 9. No anti-inflammatory medication until discussed at first post operative visit, this including Motrin, Aleve, Mobic, Diclofenac. 10. Follow up in office at 2 weeks postop with Brenton Tiwari PA-C 11. Follow up with your primary care doctor 7-10 days after discharge. 12. Contact [facility] with any questions, . Procedures: Right total knee arthroplasty Patient Condition at Discharge: Good Plan - Discharge Summary Discharge Rx Participant: Yes New Discharge Prescriptions: New Apixaban [Eliquis] 2.5 mg PO BID #60 tab traMADol HCl [Ultram] 50 mg PO Q6H PRN #28 tab PRN Reason: Pain Cefuroxime Axetil [Ceftin] 500 mg PO BID #14 tab No Action Atorvastatin Calcium [Lipitor] 20 mg PO DAILY [place] Carbonate [[place] Carbonate ER] 300 mg PO QAM Ergocalciferol (Vitamin D2) [Vitamin D2] 50,000 unit PO MO Eszopiclone [Lunesta] 2 mg PO HS PRN PRN Reason: Insomnia [place] Carbonate 600 mg PO HS Multivitamins, Thera [Multivitamin (formulary)] 1 tab PO DAILY Bactrim(Dose Unknown) 2 tab PO DAILY Hyoscyamine Sulfate [Levsin] 0.25 mg PO DAILY PRN PRN Reason: Spasms Discharge Medication List Atorvastatin Calcium [Lipitor] 20 mg PO DAILY 10/29/14 [History] [place] Carbonate [[place] Carbonate ER] 300 mg PO QAM 06/07/17 [History] Bactrim(Dose Unknown) 2 tab PO DAILY 12/31/18 [History] Ergocalciferol (Vitamin D2) [Vitamin D2] 50,000 unit PO MO 12/31/18 [History] Eszopiclone [Lunesta] 2 mg PO HS PRN 12/31/18 [History] Hyoscyamine Sulfate [Levsin] 0.25 mg PO DAILY PRN 12/31/18 [History] [place] Carbonate 600 mg PO HS 12/31/18 [History] Multivitamins, Thera [Multivitamin (formulary)] 1 tab PO DAILY 12/31/18 [History] Apixaban [Eliquis] 2.5 mg PO BID #60 tab 01/02/19 [Rx] traMADol HCl [Ultram] 50 mg PO Q6H PRN #28 tab 01/02/19 [Rx] Cefuroxime Axetil [Ceftin] 500 mg PO BID #14 tab 01/05/19 [Rx] Follow up Appointment(s)/Referral(s): [facility], [NON-STAFF] - As Needed Amauri Tiwari PAC [PHYSICIAN ABLE BODIED WATCHMAN] - 01/17/19 9:30 am Angélica Ng MD [Primary Care Provider] - 01/09/19 11:00 am (with SLICE CUTTING MACHINE OPERATOR) Patient Instructions/Handouts: Knee Replacement (DC) Activity/Diet/Wound Care/Special Instructions: Orthopedic Discharge Instructions: 1. Wound care and infection precautions, keep incision dry and covered while showering, no lotions, creams, moisturizers. No soaking, pools, hot tubs. Do not scrub over incision. 2. Weight-bear as tolerated with walker / cane until follow-up. 3. Ice and elevate when necessary. Do not exceed 20 minutes per hour with ice pack. 4. Utilize compression sleeve until seen at first follow up appointment. 5. Pain meds and anticoagulants per prescription. 6. Pain medication has potential to cause constipation. Increase oral fluid and fiber intake. Contact primary care provider if you have not had a bowel movement within 48 hours after discharge. 7. No anti-inflammatory medication until discussed at first post operative visit, this including Motrin, Aleve, Mobic, Diclofenac. 8. Follow up in office at 2 weeks postop with Brenton Tiwari PA-C 9. Follow up with your primary care doctor 7-10 days after discharge. 10. Contact [facility] with any questions, . Discharge Disposition: HOME WITH HOME HEALTH SERVICES
--- NOTE | 2019-01-08 10:32 | CDI ---
Documentation Clarification Form Date: 01/08/2019 From: [place] Phone: If questions call Annie Brown @ [phone], Hours-8:30 am & 5 pm M- Axel Admit Date: 01/03/2019 11:17:00 AM Patient Name: Cesilia Koenig Visit Number: [id number] Discharge Date: 01/05/2019 3:21:00 PM ATTENTION: The Clinical Documentation Specialists (CDI) and [facility] Coding Staff appreciate your assistance in clarifying documentation. Please respond to the clarification below the line at the bottom and electronically sign. The CDI & [facility] Coding staff will review the response and follow-up if needed. Please note: Queries are made part of the Legal Health Record. If you have any questions, please contact the author of this message via ITS. Dr. Maya Maldonado The patients principal diagnosis has not been clearly identified and requires clarification. She presented as an outpatient for right knee arthroplasty on 01/01. She developed hypotension following surgery and had an episode of nausea and vomiting the night of surgery. She developed low-grade fever on the night of 01/02. Placement order for Inpatient written on 01/02 @11:59. On 01/03 the patient developed low-grade fever. Blood cultures were negative. Urine culture ordered but not collected. History/Risk factors: OA, hypothyroidism, CAD Lab findings: 01/02- WBC-11.2, Neutrophil-8.9 CXR: 01/03-no new acute infilitrate Vital Signs: 01/01- BP-91/52, 01/02-T-99.8 & 01/03-t-100.8 Treatment: IS, IV Zofran was given on 01/01, IV fluids given on 01/02, IV Rocephin given on 01/04 Consults: Dr Rosado - fever either reactive vs atelectasis vs mild UTI In your professional opinion, can you please clarify which diagnosis, after study, accounted for the patients presenting symptoms and was the reason chiefly responsible for the admission? Osteoarthritis, normal postop care Hypotension Postop fever Fever of unknown origin UTI Atelectasis Other Question need to be directed to infectious disease of the physician that evaluate the patient at the time MTDD
--- NOTE | 2019-01-17 13:04 | CDI ---
Documentation Clarification Form Date: 01/17/19 From: [place] Phone: If you have a question regarding this query, please contact Annie Brown at [phone] between 8am and 5pm. Admit Date: 01/03/2019 11:17:00 AM Patient Name: Cesilia Koenig Visit Number: [id number] Discharge Date: 01/05/2019 3:21:00 PM ATTENTION: The Clinical Documentation Specialists (CDI) and [facility] Coding Staff appreciate your assistance in clarifying documentation. Please respond to the clarification below the line at the bottom and electronically sign. The CDI & [facility] Coding staff will review the response and follow-up if needed. Please note: Queries are made part of the Legal Health Record. If you have any questions, please contact the author of this message via ITS. Dr. Vickie Rosado The patients principal diagnosis has not been clearly identified and requires clarification. She presented as an outpatient for right knee arthroplasty on 01/01. She developed hypotension following surgery and had an episode of nausea and vomiting the night of surgery. She developed low-grade fever on the night of 01/02. Placement order for Inpatient written on 01/02 @11:59.On 01/03 the patient developed low-grade fever. Blood cultures were negative. Urine culture ordered but not collected. History/Risk factors: OA, hypothyroidism, CAD Lab findings: 01/02- WBC-11.2, Neutrophil-8.9 CXR: 01/03-no new acute infiltrate Vital Signs: 01/01- BP-91/52, 01/02-T-99.8 & 01/03-t-100.8 Treatment: IS, IV Zofran was given on 01/01, IV fluids given on 01/02, IV Rocephin given on 01/04 Consults: Dr Rosado - fever either reactive vs atelectasis vs mild UTI In your professional opinion, can you please clarify which diagnosis, after study, accounted for the patients presenting symptoms and was the reason chiefly responsible for the admission? Osteoarthritis, normal postop care Hypotension Postop fever Fever of unknown origin Atelectasis Other___Possible UTI VS ATELECTASIS MTDD
== END 2019-01-05 15:21 | disposition home health service (06) | DRG 982 ==
LOC: OR 06:12 → 4SSUR 09:51 → OR 01-02 11:59 → 4SSUR 01-03 11:17
PROVIDERS: ADMIT Orthopaedic Surgery; ATTEND Orthopaedic Surgery
PROC: 0SRC069 Replacement of Right Knee Joint with Oxidized Zirconium on Polyethylene Synthetic Substitute, Cemented, Open Approach (ICD-10-PCS; principal; 2019-01-01 08:00)
DX: I95.9 Hypotension, unspecified (principal); N39.0 Urinary tract infection, site not specified; J98.11 Atelectasis; E07.81 Sick-euthyroid syndrome; M17.11 Unilateral primary osteoarthritis, right knee; I25.10 Atherosclerotic heart disease of native coronary artery without angina pectoris; E78.00 Pure hypercholesterolemia, unspecified; M79.7 Fibromyalgia; E78.5 Hyperlipidemia, unspecified; K58.9 Irritable bowel syndrome, unspecified; G43.909 Migraine, unspecified, not intractable, without status migrainosus; K44.9 Diaphragmatic hernia without obstruction or gangrene; M48.00 Spinal stenosis, site unspecified; F43.10 Post-traumatic stress disorder, unspecified; F31.9 Bipolar disorder, unspecified; Z79.82 Long term (current) use of aspirin; Z79.899 Other long term (current) drug therapy; Z87.440 Personal history of urinary (tract) infections; Z87.891 Personal history of nicotine dependence; Z98.42 Cataract extraction status, left eye; Z98.41 Cataract extraction status, right eye; Z80.9 Family history of malignant neoplasm, unspecified
CPT/HCPCS: 71045; 80053; 80178; 81001; 84439; 84443; 85025; 85610; 85730; 87040; 87086; 88300

== ENCOUNTER → 2019-02-06 | Outpatient (CLI) | payer MEDICARE ==
[2019-02-06 10:16] LABS: Basophils % (A) 1 %; Eosinophils # (A) 0.1 k/uL (0-0.7); Eosinophils % (A) 2 %; HCT 38.6 % (34.0-46.0); HGB 12.4 gm/dL (11.4-16.0); Lymphocytes # (A) 1.4 k/uL (1.0-4.8); Lymphocytes % (A) 22 %; MCH 29.5 pg (25.0-35.0); MCV 92.1 fL (80.0-100.0); Mean Platelet Volume 6.8; Monocytes # (A) 0.3 k/uL (0-1.0); Monocytes % (A) 5 %; Neutrophils # (A) 4.6 k/uL (1.3-7.7); Neutrophils % (A) 70 %; Platelet Count 310 k/uL (150-450); RBC 4.19 m/uL (3.80-5.40); WBC 6.6 k/uL (3.8-10.6)
[2019-02-06 10:37] LABS: Appearance,Urine Clear (Clear); Bilirubin,Urine Negative (Negative); Blood,Urine Negative (Negative); Color,Urine Yellow; Glucose,Urine (UA) Negative (Negative); Ketones,Urine Negative (Negative); Leukocyte Esterase,Urine Moderate (Negative); Mucus,Urine Rare /hpf; Nitrite,Urine Negative (Negative); PH, Urine 6.5 (5.0-8.0); Protein,Urine Negative (Negative); RBC,Urine 1 /hpf (0-5); Specific Gravity,Urine 1.007 (1.001-1.035); Squamous Epithelial Cell,Urine <1 /hpf (0-4); Urobilinogen,Urine <2.0 mg/dL (<2.0); WBC,Urine 8 /hpf (0-5)
[2019-02-06 11:49] LABS: Erythrocyte Sedimentation Rate 8 mm/hr (0-20)
== END | disposition home or self-care (01) ==
LOC: LABWHC1 09:29
PROVIDERS: ATTEND Orthopaedic Surgery
DX: R30.0 Dysuria (principal); T84.84XD Pain due to internal orthopedic prosthetic devices, implants and grafts, subsequent encounter; Z96.652 Presence of left artificial knee joint
CPT/HCPCS: 36415; 81001; 85025; 85652; 86140; 87086

== ENCOUNTER 2019-03-12 10:00 | Day surgery (SDC) | payer MEDICARE ==
--- NOTE | 2019-03-11 09:37 | HP ---
HISTORY AND PHYSICAL CHIEF COMPLAINT: Right knee stiffness. HISTORY OF PRESENT ILLNESS: The patient is a 63-year-old retired female who presents after undergoing a right total knee arthroplasty on 01/01/2019 with persistent stiffness despite adequate rehabilitation. She has had no incision concerns and denies fevers or chills. She has been ambulating with a cane. She takes tramadol as needed. PAST MEDICAL HISTORY: Significant for depression, coronary artery disease, hypercholesterolemia, and osteoarthritis. PAST SURGICAL HISTORY: Significant for right total knee arthroplasty. CURRENT MEDICATIONS: 1. Lipitor. 2. Lunesta. 3. Aspirin. 4. [place]. ALLERGIES: She denies drug allergies. FAMILY HISTORY: Significant for cancer. SOCIAL HISTORY: Negative for current tobacco or alcohol use. REVIEW OF SYSTEMS: Sixteen point review of systems otherwise reviewed and is noncontributory. PHYSICAL EXAMINATION: On examination, the patient is approximately 5 feet 3 inches, 168 pounds of endomorphic habitus. HEENT exam is nonfocal. Neck is supple. She has painless passive motion of her right hip. Straight leg raise is negative. Active motion right knee -10 to 75 degrees of flexion. The incision is well healed. She is mildly tender about the medial joint line. She is stable to varus and valgus stress. Homans is negative. Her distal neurovascular exam appears intact in the right lower extremity. Previous x-rays of the right knee obtained in the office show a total knee arthroplasty in overall good alignment. IMPRESSION: 1. Status post right total knee arthroplasty. 2. Arthrofibrosis right knee. RECOMMENDATIONS: I talked to the patient at length regarding her condition and treatment options. After thorough discussion, she opts to proceed with manipulation under anesthesia. She is going to start her Medrol dose pack the day of the procedure. We will also continue with formal therapy. Risks and benefits were discussed at length in layman's terms. MMODL / IJN: [id number] / MARJORIE
[2019-03-11 10:21] VITALS: BMI 28.7
[~2019-03-12 10:00] MED LIST changes: -ACETAMINOPHEN TAB 500 MG TAB PO ONE; +DEXAMETHASONE SOD PHOSPHATE 10 MG/ML 1 ML VIAL IV ONE; -MELOXICAM 7.5 MG TAB PO ONE; +MIDAZOLAM 2 MG/2 ML VIAL IV PRN; +ONDANSETRON 4 MG/2 ML VIAL IVP ONE; +SCOPOLAMINE 1.5MG/72HR PATCH TRANSDERM ONE; -TRANEXAMIC ACID 1,000 MG in SODIUM CHLORIDE 0.9% 100 ML IVPB ONE; -ceFAZolin IN SWFI 2 GM/20 ML SYRINGE IVP ONE
[2019-03-12] MEDS: LACTATED RINGERS 1,000 ML IV SCH ×2 (10:46→10:57)
[2019-03-12] MEDS ORDERED: fentaNYL (PF) 50 MCG/ML 2 ML AMP ONE (11:58)
[2019-03-12] MEDS ORDERED: PROPOFOL 10 MG/ML 20 ML VIAL IV ONE (11:58)
--- NOTE | 2019-03-12 12:13 | P.OP ---
Date of Procedure: 03/12/19 Preoperative Diagnosis: Right knee arthrofibrosis status post total knee arthroplasty Postoperative Diagnosis: Same Procedure(s) Performed: Manipulation under anesthesia right knee Anesthesia: MAC Surgeon: Aakash Peña Estimated Blood Loss (ml): 0 Pathology: none sent Condition: stable Disposition: PACU Indications for Procedure: The patient's a 63-year-old female who recently underwent right total knee arthroplasty who presented with persistent significant stiffness despite adequate rehabilitation. A discussion of the risks and benefits of manipulation under anesthesia was made with patient. She opted to proceed. Risks of this procedure to include fracture, tendon rupture, possible recurrence of stiffness and need for subsequent procedures was discussed. Informed consent was obtained. Operative Findings: As below Description of Procedure: The patient was brought to the recovery room, and after induction of IV sedation the right knee was gently manipulated. First I obtained 130 of flexion. Moderate adhesions were encountered. Then I obtained a 0 extension. Again there were moderate adhesions. She tolerated the procedure well. No complications were incurred. There was no blood loss. She was monitored until fully awake.
[2019-03-12 12:26] VITALS: RESP 16; TEMP 97.1
[2019-03-12] MEDS: HYDROmorphone 0.5 MG/0.5 ML SYRINGE IVP PRN ×2 (12:33→12:42)
[2019-03-12 13:51] VITALS: BP 119/69; PULSE 74
== END 2019-03-12 13:50 | disposition home or self-care (01) ==
LOC: OR 10:00
PROVIDERS: ATTEND Orthopaedic Surgery
DX: M24.661 Ankylosis, right knee (principal); E78.00 Pure hypercholesterolemia, unspecified; E78.5 Hyperlipidemia, unspecified; I25.10 Atherosclerotic heart disease of native coronary artery without angina pectoris; F32.9 Major depressive disorder, single episode, unspecified; M19.90 Unspecified osteoarthritis, unspecified site; Z79.82 Long term (current) use of aspirin; Z79.01 Long term (current) use of anticoagulants; Z79.899 Other long term (current) drug therapy; Z96.651 Presence of right artificial knee joint; Z88.0 Allergy status to penicillin; Z88.5 Allergy status to narcotic agent; Z87.891 Personal history of nicotine dependence; Z80.9 Family history of malignant neoplasm, unspecified
CPT/HCPCS: 27570; J2250; J1100; J2405; J3010; J2704; J1170

== ENCOUNTER 2021-08-29 13:21 | Observation (INO) | payer MEDICARE ==
[2021-08-29 14:15] LABS: ALT 13 U/L (4-34); AST 25 U/L (14-36); African American GFR (CKD) >90 (>60 ml/min/1.73 sqM); Albumin 4.1 g/dL (3.5-5.0); Alkaline Phosphatase 75 U/L (38-126); Anion Gap 4 mmol/L; Blood Urea Nitrogen 11 mg/dL (7-17); Calcium 9.3 mg/dL (8.4-10.2); Carbon Dioxide 24 mmol/L (22-30); Chloride 110 mmol/L (98-107); Glucose 137 mg/dL (74-99); Lipase 58 U/L (23-300); Magnesium 2.1 mg/dL (1.6-2.3); Non-African American GFR(CKD) >90 (>60 ml/min/1.73 sqM); Potassium 4.6 mmol/L (3.5-5.1); Sodium 138 mmol/L (137-145); Total Bilirubin 0.6 mg/dL (0.2-1.3); Total Protein 6.8 g/dL (6.3-8.2)
[2021-08-29] MEDS: NITROGLYCERIN SL TABS 0.4 MG TAB SUBLINGUAL PRN ×3 (14:17→14:31)
[2021-08-29 14:19] LABS: INR 0.9 (<1.2); Prothrombin Time 10.3 sec (9.0-12.0)
[2021-08-29 14:23] LABS: Partial Thromboplastin Time 19.6 sec (22.0-30.0)
[2021-08-29 14:27] LABS: Basophils # (A) 0.1 k/uL (0-0.2); Basophils % (A) 0 %; Eosinophils # (A) 0.1 k/uL (0-0.7); Eosinophils % (A) 1 %; HCT 41.7 % (34.0-46.0); HGB 13.8 gm/dL (11.4-16.0); Lymphocytes % (A) 8 %; MCH 30.5 pg (25.0-35.0); MCHC 33.2 g/dL (31.0-37.0); MCV 92.1 fL (80.0-100.0); Mean Platelet Volume 9.5; Monocytes # (A) 0.4 k/uL (0-1.0); Monocytes % (A) 3 %; Neutrophils # (A) 10.7 k/uL (1.3-7.7); Neutrophils % (A) 87 %; RBC 4.53 m/uL (3.80-5.40); RDW 12.9 % (11.5-15.5); WBC 12.3 k/uL (3.8-10.6)
[2021-08-29 14:38] LABS: Platelet Count 186 k/uL (150-450)
[2021-08-29 14:40] LABS: RBC Morphology Normal
--- NOTE | 2021-08-29 15:31 | XR ---
EXAMINATION TYPE: XR chest 2V DATE OF EXAM: 08/29/2021 COMPARISON: 01/03/2019 HISTORY: Fever TECHNIQUE: 2 views FINDINGS: Heart and mediastinum are normal. Lungs are clear. Diaphragm is normal. Bony thorax is norm al. IMPRESSION: Normal chest. No change.
--- NOTE | 2021-08-29 15:44 | ED ---
Chest Pain HPI - General Chief Complaint: Chest Pain Stated Complaint: N/V Time Seen by Provider: 08/29/21 13:24 Source: patient Mode of arrival: EMS Limitations: no limitations - History of Present Illness Initial Comments: Patient is a 66-year-old female with a past medical history of coronary artery disease and hyperlipidemia who presents to the emergency department with chief complaint of chest pain. Patient reports sudden onset of chest pain and nausea this morning. She reports she has never experienced these symptoms before. Chest pain is localized near the lower sternum with radiation to the left arm and the middle back. During the chest pain and nausea patient reports she broke out in a sweat and felt lightheaded. Pain continued throughout the day so patient called the ambulance. She was given aspirin in the ambulance. Currently, patient endorses chest pain but no nausea. She denies other concerns at this time including fever, chills, shortness of breath, palpitations, abdominal pain, and vomiting. She denies history of other cardiac disease or procedures such as hypertension, PCI, and CABG. She denies family history of c ardiac disease. She denies past and recent smoking. Patient reports she drinks a few mixed drinks every couple weeks. - Related Data Home Medications Medication Instructions Recorded Confirmed Atorvastatin Calcium [Lipitor] 20 mg PO DAILY 10/29/14 08/29/21 [place] Carbonate 600 mg PO HS 12/31/18 08/29/21 Aspirin EC [Ecotrin Low Dose] 81 mg PO DAILY 08/29/21 08/29/21 [place] Carbonate 300 mg PO DAILY 08/29/21 08/29/21 Allergies Allergy/AdvReac Type Severity Reaction Status Date / Time morphine Allergy Severe Vomiting Verified 08/29/21 14:43 Penicillins Allergy yeast Verified 08/29/21 14:43 infection Review of Systems ROS Statement: Those systems with pertinent positive or pertinent negative responses have been documented in the HPI. ROS Other: All systems not noted in ROS Statement are negative. EKG Findings - EKG Comments: EKG Findings:: EKG taken at 14:03. Sinus bradycardia, possible right ventricular conduction delay. ventricular rate 55. IN interval 186. QRS duration 105. QTC 417 Past Medical History Past Medical History: Coronary Artery Disease (CAD), Fibromyalgia, Hyperlipidemia Additional Past Medical History / Comment(s): spinal stenosis, IBS History of Any Multi-Drug Resistant Organisms: None Reported Past Surgical History: No Surgical Hx Reported Additional Past Surgical History / Comment(s): colonoscopy, grzegorz cataracts Past Anesthesia/Blood Transfusion Reactions: No Reported Reaction Past Psychological History: Bipolar, Depression Smoking Status: Never smoker Past Alcohol Use History: None Reported - Past Family History Father Family Medical History: Cancer Mother Family Medical History: Cancer General Exam Limitations: no limitations General appearance: alert, in no apparent distress Head exam: Present: atraumatic, normocephalic, normal inspection Eye exam: Present: normal appearance, PERRL Respiratory exam: Present: normal lung sounds bilaterally. Absent: respiratory distress, wheezes, rales, rhonchi, stridor Cardiovascular Exam: Present: normal rhythm, bradycardia GI/Abdominal exam: Present: soft, tenderness (With light palpation in the epigastric region), normal bowel sounds. Absent: distended, guarding, rebound, rigid Extremities exam: Present: normal inspection Back exam: Present: normal inspection. Absent: tenderness, paraspinal tenderness, vertebral tenderness Neurological exam: Present: alert, oriented X3, CN II-XII intact Psychiatric exam: Present: normal affect, normal mood Skin exam: Present: warm, dry, intact, normal color. Absent: rash Course Vital Signs 08/29/21 08/29/21 13:28 15:12 Temperature 97.1 F L Pulse Rate 58 L 63 Respiratory 16 16 Rate Blood Pressure 120/72 99/61 O2 Sat by Pulse 96 100 Oximetry Chest Pain MDM - MDM This is a 66-year-old female who presents with typical chest pain this morning. Thorough history and examination were performed. Patient is hemodynamically stable. Oxygen is 96% on room air. Chest pain is reproducible with palpation of the lower sternum. Patient is very tender with light palpation of the epigastric region although she denies abdominal pain and history of heartburn/GERD. EKG reveals sinus bradycardia. Initial troponin is within normal limits. Other laboratory studies are unremarkable. Chest x-ray reveals no acute cardiopulmonary process. Patient given aspirin in the ambulance and 3 sublingual nitroglycerin in the emergency department. On reevaluation patient is resting comfortably in bed. She reports chest pain is significantly improved. Results discussed with patient. Patient has heart score of 5. Patient I discussed that she has risk factors for an adverse cardiac event and therefore I do suggest admission for observation. Patient verbalizes understanding and is agreeable to plan. Case discussed with Dr. Dowd. Patient will be admitted to his service with ca rdiology consult. Repeat troponin, nitroglycerin drip, and maintenance fluids were ordered. Dr. Dowd evaluated the patient in the emergency department and discovered the patient had a fall about week ago on the right side of her head. She did not lose consciousness. She is not on blood thinners. CT of the brain without contrast was ordered per Dr. Dowd's request. Dr. Lewis is my attending. Disposition Clinical Impression: Chest pain, Diaphoresis, Nausea, Bradycardia Disposition: ADMITTED IP TO THIS HOSP Condition: Good Referrals: None,Stated [Primary Care Provider] - 1-2 days Decision Time: 15:43
[2021-08-29] MEDS ORDERED: NALOXONE 0.4 MG/ML 1 ML VIAL IV PRN (16:00)
[2021-08-29] MEDS ORDERED: SODIUM CHLORIDE 0.9% 1,000 ML IV STA (16:04)
[2021-08-29] MEDS ORDERED: NITROGLYCERIN-D5W PMX 50 MG in DEXTROSE/WATER 1 250ML.BAG IV ONE (16:05)
--- NOTE | 2021-08-29 16:34 | P.HPIM ---
History of Present Illness patient is a 66-year-old female with a past migration significant for major depression disorder and hyperlipidemia that presents to the hospital complaining of chest pain. This began earlier today currently rates a 4 out of 10 that comes and goes. The pain is reproducible and does get worse on movement at times. She described as throbbing-like in nature but did radiate to the left arm for a few minutes and then resolved. 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 She did have a stress test completed less than 1 year ago as per patient which was normal. Currently she is chest pain-free EKG was completed which showed sinus bradycardia. Cardiac troponin was negative 1 in the emergency department. Patient also endorses having some changes in her vision that she described as "snowy"this started last week when she had a mechanical fall outside and hit the right side of her head. She denies any focal deficits or any other neurologic symptoms. Past Medical History Past Medical History: Coronary Artery Disease (CAD), Fibromyalgia, Hyperlipidemia Additional Past Medical History / Comment(s): spinal stenosis, IBS History of Any Multi-Drug Resistant Organisms: None Reported Past Surgical History: No Surgical Hx Reported Additional Past Surgical History / Comment(s): colonoscopy, grzegorz cataracts Past Anesthesia/Blood Transfusion Reactions: No Reported Reaction Past Psychological History: Bipolar, Depression Smoking Status: Never smoker Past Alcohol Use History: None Reported - Past Family History Father Family Medical History: Cancer Mother Family Medical History: Cancer Medications and Allergies Home Medications Medication Instructions Recorded Confirmed Type Atorvastatin Calcium [Lipitor] 20 mg PO DAILY 10/29/14 08/29/21 History [place] Carbonate 600 mg PO HS 12/31/18 08/29/21 History Aspirin EC [Ecotrin Low Dose] 81 mg PO DAILY 08/29/21 08/29/21 History [place] Carbonate 300 mg PO DAILY 08/29/21 08/29/21 History Allergies Allergy/AdvReac Type Severity Reaction Status Date / Time morphine Allergy Severe Vomiting Verified 08/29/21 14:43 Penicillins Allergy yeast Verified 08/29/21 14:43 infection Physical Exam Vitals: Vital Signs Temp Pulse Resp BP Pulse Ox 08/29/21 15:12 63 16 99/61 100 08/29/21 13:28 97.1 F L 58 L 16 120/72 96 Intake and Output 08/29/21 08/29/21 08/29/21 06:59 14:59 22:59 Other: Weight 70.307 kg patient is awake alert oriented 3 Cardio normal S1/S2 heard no murmurs or rubs appreciated Respiratory no wheezing or rhonchi appreciated bilateral air entry Abdomen soft, nontender Extremities no pitting edema Neurologic cranial lives 2-12 grossly intact Gait not was not assessed in the emergency department safety reasons. Results CBC & Chem 7: 08/29/21 14:01 08/29/21 14:01 Labs: Abnormal Lab Results - Last 24 Hours (Table) 08/29/21 08/29/21 08/29/21 Range/Units 14:01 14:01 14:01 WBC 12.3 H (3.8-10.6) k/uL Neutrophils # 10.7 H (1.3-7.7) k/uL APTT 19.6 L (22.0-30.0) sec Chloride 110 H (98-107) mmol/L Glucose 137 H (74-99) mg/dL Assessment and Plan Assessment: assessment: #1 chest pain most likely related to muscle skeletal versus ACS rule out #2 change in vision rule out subdural status post fall #3 hyperlipidemia #4 major depression disorder Plan: -Admit to medicine for close monitoring -Aspiration/fall precaution -Continue to monitor cardiac troponin -Risk stratified patient with hemoglobin A1c, lipid panel -Computed tomography scan of the brain pending to rule out subdural bleed -heart score intermediate, cardiology consult from the ER. -DVT Px: SCDS until CT negative -admitted under observation anticipate discharge in the next 24 hours if cardiac workup negative and CT head negative.
--- NOTE | 2021-08-29 17:02 | CT ---
EXAMINATION TYPE: CT brain wo con DATE OF EXAM: 08/29/2021 COMPARISON: None HISTORY: FALL X1 WEEK AGO. WOKE UP TODAY VERY DIZZY. CT DLP: 1158.4 mGycm Automated exposure control for dose reduction was used. Ventricles have normal size. There is no mass effect or midline shift. There is no sign of intracrani al hemorrhage. Is normal aeration of the mastoid sinuses. Skull base is intact. Calvarium is intact. IMPRESSION: Negative unenhanced head CT scan.
[2021-08-29 17:31] LABS: Phosphorus 3.4 mg/dL (2.5-4.5)
[2021-08-29] MEDS ORDERED: ACETAMINOPHEN TAB 500 MG TAB PO STA (21:09)
[2021-08-29] MEDS: LITHIUM CARBONATE 300 MG CAP PO SCH (22:42)
[2021-08-29 23:02] LABS: Chol/HDL Ratio 2.54 Ratio; LDL Cholesterol,Calculated 84.8 mg/dL (0.0-131.0)
[2021-08-29] MEDS: MELATONIN 5 MG TABLET PO PRN (23:19)
[2021-08-30] MEDS: ASPIRIN 81 MG PO SCH (07:51)
[2021-08-30] MEDS: ATORVASTATIN 20 MG TAB PO SCH (07:51)
[2021-08-30] MEDS: LITHIUM CARBONATE 300 MG CAP PO SCH ×2 (07:52→20:43)
[2021-08-30 07:56] LABS: African American GFR (CKD) >90 (>60 ml/min/1.73 sqM); Anion Gap 2 mmol/L; Blood Urea Nitrogen 14 mg/dL (7-17); Calcium 9.3 mg/dL (8.4-10.2); Carbon Dioxide 24 mmol/L (22-30); Chloride 111 mmol/L (98-107); Glucose 101 mg/dL (74-99); Non-African American GFR(CKD) >90 (>60 ml/min/1.73 sqM); Potassium 4.2 mmol/L (3.5-5.1); Sodium 137 mmol/L (137-145)
[2021-08-30 08:09] LABS: Basophils % (A) 0 %; Eosinophils # (A) 0.1 k/uL (0-0.7); Eosinophils % (A) 1 %; HCT 39.4 % (34.0-46.0); HGB 12.5 gm/dL (11.4-16.0); Lymphocytes # (A) 1.7 k/uL (1.0-4.8); Lymphocytes % (A) 21 %; MCH 30.1 pg (25.0-35.0); MCHC 31.8 g/dL (31.0-37.0); MCV 94.9 fL (80.0-100.0); Mean Platelet Volume 8.5; Monocytes # (A) 0.4 k/uL (0-1.0); Monocytes % (A) 5 %; Neutrophils # (A) 5.8 k/uL (1.3-7.7); Neutrophils % (A) 72 %; Platelet Count 223 k/uL (150-450); RBC 4.16 m/uL (3.80-5.40); RDW 12.6 % (11.5-15.5); WBC 8.1 k/uL (3.8-10.6)
--- NOTE | 2021-08-30 10:36 | P.CRDCN ---
History of Present Illness Consult date: 08/30/21 Chief complaint: Chest pain History of present illness: This is a very pleasant 66-year-old female patient with a past medical history significant for CAD documented on heart catheterization according to her around 10 years ago the patient currently is under the care of a shear operator out of this area and also she is known to have hypertension and dyslipidemia. She presented to the emergency department complaining of chest discomfort. She was in her usual state of health that about 2 days ago when she started experiencing discomfort in the middle of the chest as a pressure on the chest with radiation to her left arm. No associated symptoms of shortness of breath or sweating or dizziness or lightheadedness or any feeling of heart racing or fluttering or presyncope or syncope. The troponin came in to be unremarkable. The EKG showed sinus rhythm without any significant ST or T-wave abnormalities. Currently she is experiencing about 2/10 intensity chest discomfort. The patient also was noted to have epigastric discomfort on examination and for that reason I'm going to obtain an ultrasound of the abdomen to rule out gallbladder etiology before we pursue with any further cardiac workup needed. Past Medical History Past Medical History: Coronary Artery Disease (CAD), Fibromyalgia, Hyp erlipidemia Additional Past Medical History / Comment(s): spinal stenosis, IBS History of Any Multi-Drug Resistant Organisms: None Reported Past Surgical History: No Surgical Hx Reported Additional Past Surgical History / Comment(s): colonoscopy, grzegorz cataracts, right kneee replacment Past Anesthesia/Blood Transfusion Reactions: No Reported Reaction Past Psychological History: Bipolar, Depression Smoking Status: Never smoker Past Alcohol Use History: None Reported Additional Past Alcohol Use History / Comment(s): quit smoking 20 yrs, smoked on and off for 4-6 yrs Past Drug Use History: None Reported - Past Family History Father Family Medical History: Cancer Mother Family Medical History: Cancer Medications and Allergies Home Medications Medication Instructions Recorded Confirmed Type Atorvastatin Calcium [Lipitor] 20 mg PO DAILY 10/29/14 08/29/21 History [place] Carbonate 600 mg PO HS 12/31/18 08/29/21 History Aspirin EC [Ecotrin Low Dose] 81 mg PO DAILY 08/29/21 08/29/21 History [place] Carbonate 300 mg PO DAILY 08/29/21 08/29/21 History Allergies Allergy/AdvReac Type Severity Reaction Status Date / Time morphine Allergy Severe Vomiting Verified 08/29/21 14:43 Penicillins Allergy yeast Verified 08/29/21 14:43 infection Physical Exam Vitals: Vital Signs Temp Pulse Pulse Resp BP BP Pulse Ox 08/30/21 08:00 58 L 16 08/30/21 07:54 97.7 F 58 L 16 118/69 99 08/30/21 03:40 97.6 F 61 16 111/68 97 08/30/21 00:00 97.3 F L 60 16 99/59 97 08/29/21 22:24 97.1 F L 62 18 95/57 98 08/29/21 19:01 81 16 102/59 99 08/29/21 17:58 74 16 102/45 99 08/29/21 17:35 79 16 108/65 97 08/29/21 17:02 66 16 106/63 97 08/29/21 15:12 63 16 99/61 100 08/29/21 13:28 97.1 F L 58 L 16 120/72 96 Intake and Output 08/29/21 08/30/21 08/30/21 22:59 06:59 14:59 Intake Total 540 Balance 540 Intake: Oral 540 Other: Voiding Method Toilet Toilet Toilet # Voids 1 Weight 70.307 kg 80.5 kg - Constitutional General appearance: no acute distress - Respiratory Respiratory: bilateral: CTA - Cardiovascular Rhythm: regular Heart sounds: normal: S1, S2 Results 08/30/21 06:44 08/30/21 06:44 Cardiac Enzymes 08/29/21 08/29/21 08/29/21 Range/Units 14:01 14:01 18:17 AST 25 (14-36) U/L Troponin I <0.012 <0.012 (0.000-0.034) ng/mL 08/29/21 Range/Units 21:07 AST (14-36) U/L Troponin I <0.012 (0.000-0.034) ng/mL Coagulation 08/29/21 Range/Units 14:01 PT 10.3 (9.0-12.0) sec APTT 19.6 L (22.0-30.0) sec Lipids 08/29/21 Range/Units 14:01 Triglycerides 107.00 (0.00-149.00) mg/dL Cholesterol 175.00 (0.00-200.00) mg/dL HDL Cholesterol 68.80 H (40.00-60.00) mg/dL Cholesterol/HDL Ratio 2.54 Ratio CBC 08/29/21 08/30/21 Range/Units 14:01 06:44 WBC 12.3 H 8.1 (3.8-10.6) k/uL RBC 4.53 4.16 (3.80-5.40) m/uL Hgb 13.8 12.5 (11.4-16.0) gm/dL Hct 41.7 39.4 (34.0-46.0) % Plt Count 186 223 (150-450) k/uL Comprehensive Metabolic Panel 08/29/21 08/30/21 Range/Units 14:01 06:44 Sodium 138 137 (137-145) mmol/L Potassium 4.6 4.2 (3.5-5.1) mmol/L Chloride 110 H 111 H (98-107) mmol/L Carbon Dioxide 24 24 (22-30) mmol/L BUN 11 14 (7-17) mg/dL Creatinine 0.61 0.66 (0.52-1.04) mg/dL Glucose 137 H 101 H (74-99) mg/dL Calcium 9.3 9.3 (8.4-10.2) mg/dL AST 25 (14-36) U/L ALT 13 (4-34) U/L Alkaline Phosphatase 75 (38-126) U/L Total Protein 6.8 (6.3-8.2) g/dL Albumin 4.1 (3.5-5.0) g/dL Current Medications Generic Name Dose Route Start Last Admin Trade Name Aleksandra PRN Reason Stop Dose Admin Aspirin 81 mg 08/30/21 09:00 08/30/21 07:51 Aspirin 81 Mg PO 81 mg DAILY REID Administration Atorvastatin Calcium 20 mg 08/30/21 09:00 08/30/21 07:51 Atorvastatin 20 Mg Tab PO 20 mg DAILY REID Administration [place] Carbonate 300 mg 08/30/21 09:00 08/30/21 07:52 [place] Carbonate 300 Mg Cap PO 300 mg DAILY REID Administration [place] Carbonate 600 mg 08/29/21 21:00 08/29/21 22:42 [place] Carbonate 300 Mg Cap PO 600 mg HS REID Administration Melatonin 5 mg 08/29/21 23:07 08/29/21 23:19 Melatonin 5 Mg Tablet PO 5 mg HS PRN Administration Insomnia Naloxone HCl 0.2 mg 08/29/21 16:00 Naloxone 0.4 Mg/Ml 1 Ml Vial IV Q2M PRN Opioid Reversal Nitroglycerin 0.4 mg 08/29/21 13:37 08/29/21 14:31 Nitroglycerin Sl Tabs 0.4 Mg Tab SUBLINGUAL 0.4 mg Q5M PRN Administration Chest Pain Intake and Output 08/29/21 08/30/21 08/30/21 22:59 06:59 14:59 Intake Total 540 Balance 540 Intake: Oral 540 Other: Voiding Method Toilet Toilet Toilet # Voids 1 Weight 70.307 kg 80.5 kg 08/30/21 06:44 08/30/21 06:44 Assessment and Plan Assessment: Assessment #1 chest discomfort #2 known CAD #3 hypertension #4 dyslipidemia Plan #1 acute coronary event was ruled out #2 rule out severe CAD #3 rule out gastrointestinal etiology. The patient does have epigastric tenderness on examination #4 obtain an echo #5 follow-up with the patient
--- NOTE | 2021-08-30 11:52 | US ---
EXAMINATION TYPE: US abdomen complete DATE OF EXAM: 08/30/2021 COMPARISON: NONE CLINICAL HISTORY: abd pain, r/o gallbladder issues. Pt states generalized ABD pain EXAM MEASUREMENTS: Liver Length: 15.6 cm Gallbladder Wall: 0.2 cm CBD: 0.5 cm Spleen: 8.9 cm Right Kidney: 11.0 x 4.4 x 5.1 cm Left Kidney: 10.5 x 5.4 x 4.8 cm Pancreas: wnl, tail obscured by overlying bowel gas Liver: Cyst left lobe= 1.8 x 1.3 x 1.1 cm, coarse echotexture Gallbladder: wnl Evidence for sonographic Melgar's sign: No CBD: wnl Spleen: wnl Right Kidney: wnl, lower pole gassed out Left Kidney: Cyst upper pole= 2.9 x 2.0 x 2.2 cm Upper IVC: wnl Abd Aorta: wnl The intrahepatic portion of the IVC and proximal abdominal aorta are within normal limits. There is no evidence of cholelithiasis. Common bile duct is unremarkable. The visualized portions of the arguello creas are homogenous. The spleen is unremarkable. Kidneys are symmetric and free of hydronephrosis. IMPRESSION: 1. Hepatic steatosis. 2. Hepatic cyst and left renal cyst.
--- NOTE | 2021-08-30 14:14 | P.PN ---
Subjective Progress Note Date: 08/30/21 Patient reports ongoing chest/epigastric discomfort. Troponins have trended negative. Cardiology following. Gen: awake, alert HEENT: normocephalic, atraumatic, good hearing acuity, moist mucous membranes Resp: good air exchange, breathing comfortably with no accessory muscle use CVS: good distal perfusion x 4, GI: soft, NTTP, ND : no SPT, no CVAT, barrera catheter not present MSK: no pitting edema, no clubbing Neuro: non-focal, moving all extremities Psych: cooperative, euthymic mood Assessment/plan: Chest pain, atypical Mechanical fall Hyperlipidemia Major depressive disorder -Admit to medicine for close monitoring -Aspiration/fall precaution -Continue to monitor cardiac troponin -Risk stratified patient with hemoglobin A1c, lipid panel -Computed tomography scan of the brain pending to rule out subdural bleed -heart score intermediate, cardiology consult from the ER. -Right upper quadrant ultrasound pending -DVT Px: SCDS until CT negative -admitted under observation anticipate discharge in the next 24 hours if cardiac workup negative and CT head negative. Objective - Vital Signs Vital signs: Vital Signs Temp 98.0 F 08/30/21 11:10 Pulse 60 08/30/21 14:00 Resp 18 08/30/21 14:00 BP 124/59 08/30/21 11:10 Pulse Ox 100 08/30/21 11:10 Intake & Output 08/29/21 08/30/21 08/30/21 18:59 06:59 18:59 Intake Total 540 118 Balance 540 118 Weight 70.307 kg 80.5 kg Intake: Oral 540 118 Other: Voiding Method Toilet Toilet # Voids 1 2 - Labs CBC & Chem 7: 08/30/21 06:44 08/30/21 06:44 Labs: Abnormal Lab Results - Last 24 Hours (Table) 08/29/21 08/29/21 08/29/21 Range/Units 14:01 14:01 14:01 WBC 12.3 H (3.8-10.6) k/uL Neutrophils # 10.7 H (1.3-7.7) k/uL APTT 19.6 L (22.0-30.0) sec Chloride 110 H (98-107) mmol/L Glucose 137 H (74-99) mg/dL HDL Cholesterol (40.00-60.00) mg/dL 08/29/21 08/30/21 Range/Units 14:01 06:44 WBC (3.8-10.6) k/uL Neutrophils # (1.3-7.7) k/uL APTT (22.0-30.0) sec Chloride 111 H (98-107) mmol/L Glucose 101 H (74-99) mg/dL HDL Cholesterol 68.80 H (40.00-60.00) mg/dL
[2021-08-30] MEDS: ACETAMINOPHEN TAB 325 MG TAB PO PRN (16:15)
[2021-08-30] MEDS: NITROGLYCERIN SL TABS 0.4 MG TAB SUBLINGUAL PRN (20:42)
[2021-08-30] MEDS: MELATONIN 5 MG TABLET PO PRN (20:43)
[2021-08-31] MEDS: ACETAMINOPHEN TAB 325 MG TAB PO PRN ×2 (01:27→12:01)
[2021-08-31] MEDS: LITHIUM CARBONATE 300 MG CAP PO SCH (08:13)
[2021-08-31] MEDS: ATORVASTATIN 20 MG TAB PO SCH (08:13)
[2021-08-31] MEDS: ASPIRIN 81 MG PO SCH (08:13)
[2021-08-31 08:16] VITALS: RESP 18
[2021-08-31] MEDS ORDERED: ALPRAZolam 0.5 MG TAB PO PRN (10:23)
[2021-08-31] MEDS ORDERED: ALPRAZolam 0.25 MG TAB PO PRN (10:23)
[2021-08-31] MEDS ORDERED: SODIUM CHLORIDE 0.9% 1,000 ML in EMPTY BAG 1 BAG IV SCH (10:30)
[2021-08-31] MEDS ORDERED: HEPARIN SODIUM 1,000 UN/ML (10ML VL) ONE (12:41)
[2021-08-31] MEDS ORDERED: VERAPAMIL 2.5 MG/ML 2 ML AMP ONE (12:41)
[2021-08-31] MEDS ORDERED: LIDOCAINE 1% INJ 10MG/ML (20 ML MDV) ONE (12:41)
[2021-08-31] MEDS ORDERED: IV FLUID CONTINUATION 1,000 ML IV ONE (12:52)
[2021-08-31] MEDS ORDERED: MIDAZOLAM HCL 10 MG/10 ML VIAL IVP ONE (13:17)
[2021-08-31] MEDS ORDERED: LIDOCAINE 1% INJ 10MG/ML (20 ML MDV) SQ ONE (13:18)
[2021-08-31] MEDS: VERAPAMIL SYRINGE (5 MG/10 ML) INTRAARTER ONE ×2 (13:21→13:31)
[2021-08-31] MEDS ORDERED: fentaNYL (PF) 50 MCG/ML 2 ML AMP ONE (13:21)
[2021-08-31] MEDS ORDERED: fentaNYL (PF) 50 MCG/ML 2 ML AMP IVP ONE (13:22)
[2021-08-31] MEDS ORDERED: HEPARIN SODIUM 1,000 UN/ML (10ML VL) IV ONE (13:22)
[2021-08-31] MEDS ORDERED: HYDROmorphone 0.5 MG/0.5 ML SYRINGE IVP ONE (13:25)
[2021-08-31] MEDS ORDERED: IOPAMIDOL-370 125ML BTL INJ ONE (13:31)
[2021-08-31] MEDS ORDERED: RX INFO: IV CONTRAST WAS GIVEN 1 EACH MISC MISCELLANE PRN (13:32)
--- NOTE | 2021-08-31 13:36 | P.PCN ---
Date of Procedure: 08/31/21 Operative Findings: CARDIAC CATHETERIZATION PERFORMING PHYSICIAN: Rj Edmonds MD, RPVI PROCEDURE PERFORMED: 1. Selective right and left coronary angiogram 2. Left heart catheterization INDICATION: Unstable angina COMPLICATION: None APPROACH: Right radial artery LEVEL OF SEDATION: Moderate with a sedation length of 11 minutes PROCEDURE DESCRIPTION: After obtaining an informed consent, the patient was brought to cardiac lab technologist. Local anesthesia was performed using lidocaine subcutaneously. The right radial artery was cannulated using Seldinger technique, the guidewire passed easily, following that we advanced a 5-Welsh sheath dilator assembly, the wire and dilator were removed and sheath was flushed. Following that, 2 mg of verapamil along with 5000 unit heparin were given. Selective right and left coronary angiogram using a 6-Welsh JR4 and JL 3.5 catheters. Left heart catheterization was performed using the JR4 catheter which cross the aortic back across the valve. The procedure was completed there was no complication. SELECTIVE CORONARY ANGIOGRAM: The right coronary artery: Is a large caliber vessel ansa dominant vessel. Its angiographically normal. Distally bifurcates into PDA and PLV branches and both appeared to be angiographically normal. Left main: It is angiographically normal. Bifurcates into a small left circumflex as well as left anterior descending artery The left circumflex: Is a small to medium caliber vessel and nondominant vessel. The left circumflex gives rises proximally into a first obtuse marginal branch which appeared to be angiographically normal. The circumflex after that become very small-caliber vessel in the AV groove The left anterior descending artery: Is a large caliber vessel. Its angiographically normal. It gives rises into a large diagonal branch which seems to be angiographically normal. HEMODYNAMICS: The LVEDP was 10 mmHg without significant gradient across aortic valve CONCLUSION: 1. Normal coronary angiogram 2. Normal left-sided filling pressure POSTPROCEDURE MANAGEMENT: Medical treatment and follow-up with the patient
[2021-08-31] MEDS ORDERED: SODIUM CHLORIDE 0.9% 1,000 ML IV SCH (13:45)
[2021-08-31 13:51] VITALS: BP 109/67; PULSE 53
[2021-08-31] MEDS ORDERED: MIDAZOLAM 2 MG/2 ML VIAL ONE (15:17)
--- NOTE | 2021-08-31 15:51 | P.DS ---
Providers Date of admission: 08/29/21 16:27 Expected date of discharge: 08/31/21 Attending physician: Lang Dowd MD Consults: 08/29/21 16:00 Consult Physician Routine Consulting Provider: Rj Edmonds Consult Reason/Comments: chest pain Do you want consulting provider notified?: Yes Primary care physician: Stated None Hospital Course: Chest pain, atypical Mechanical fall Hyperlipidemia Major depressive disorder Patient was admitted to medicine, observation, telemetry for chest pressure/pain, atypical. Her troponins were trended and were negative. Her EKG showed nonspecific findings. Cardiology followed the patient. Given her recent fall, CT of the head was done to rule out subdural bleed, was negative. Given the location of her pain in the chest versus epigastric, right upper quadrant ultrasound was done and did not show any acute pathology, did show hepatic steatosis. Patient underwent left heart catheterization today, 08/31, which showed completely clean coronaries. Patient was a slightly discharged home with PCP follow-up. Gen: awake, alert HEENT: normocephalic, atraumatic, good hearing acuity, moist mucous membranes Resp: good air exchange, breathing comfortably with no accessory muscle use CVS: good distal perfusion x 4, GI: soft, NTTP, ND : no SPT, no CVAT, barrera catheter not present MSK: no pitting edema, no clubbing Neuro: non-focal, moving all extremities Psych: cooperative, euthymic mood Patient Condition at Discharge: Good Plan - Discharge Summary Discharge Rx Participant: No New Discharge Prescriptions: New Acetaminophen Tab [Tylenol] 650 mg PO Q6HR PRN tab PRN Reason: Fever And/ Or Pain Continue Atorvastatin Calcium [Lipitor] 20 mg PO DAILY [place] Carbonate 600 mg PO HS Aspirin EC [Ecotrin Low Dose] 81 mg PO DAILY [place] Carbonate 300 mg PO DAILY Discharge Medication List Atorvastatin Calcium [Lipitor] 20 mg PO DAILY 10/29/14 [History] [place] Carbonate 600 mg PO HS 12/31/18 [History] Aspirin EC [Ecotrin Low Dose] 81 mg PO DAILY 08/29/21 [History] [place] Carbonate 300 mg PO DAILY 08/29/21 [History] Acetaminophen Tab [Tylenol] 650 mg PO Q6HR PRN tab 08/31/21 [Rx] Follow up Appointment(s)/Referral(s): Rj Edmonds MD [STAFF PHYSICIAN] - 09/07/21 3:13 pm ([address]) None,Stated [Primary Care Provider] - 1-2 days Discharge Disposition: HOME SELF-CARE
[2021-08-31 17:02] VITALS: TEMP 98
[2021-09-01] MEDS ORDERED: HEPARIN SODIUM,PORCINE 2,500 UNIT in SODIUM CHLORIDE 0.9% 250 ML IRRIGATION PRN (07:00)
[2021-09-01] MEDS ORDERED: HEPARIN SODIUM,PORCINE 10,000 UNIT in SODIUM CHLORIDE 0.9% 1,000 ML IRRIGATION PRN (07:00)
--- NOTE | 2021-09-01 10:58 | ECHOF ---
Referral Reason:chest pain MEASUREMENTS -------- HEIGHT: 160.0 cm WEIGHT: 80.3 kg BP: IVSd: 1.2 cm (0.6 - 1.1) LVIDd: 3.9 cm (3.9 - 5.3) LVPWd: 1.0 cm (0.6 - 1.1) EDV(Teich): 65 ml IVSs: 1.7 cm LVIDs: 2.6 cm LVPWs: 1.7 cm %IVS Thck: 39 % ESV(Teich): 24 ml EF(Teich): 63 % %FS: 33 % SV(Teich): 41 ml RVIDd: 2.5 cm (< 3.3) IVC: 21.09 mm LALs A4C: 4.8 cm LAAs A4C: 12.9 cm LAESV A-L A4C: 29 ml LAESV MOD A4C: 28 ml LALs A2C: 4.6 cm LAAs A2C: 12.0 cm LAESV A-L A2C: 26 ml LAESV MOD A2C: 25 ml LAESV(A-L): 28 ml LAESV Index (A-L): 15.42 ml/m Ao Diam: 3.0 cm (2.0 - 3.7) LA Diam: 2.5 cm (2.7 - 3.8) AV Cusp: 1.9 cm (1.5 - 2.6) EPSS: 0.9 cm MV E Gamal: 0.86 m/s MV DecT: 205 ms MV Dec [place]: 4.2 m/s MV A Gamal: 0.98 m/s MV E/A Ratio: 0.87 MV PHT: 59 ms MR Vmax: 2.96 m/s MR maxP.09 mmHg AV Vmax: 1.32 m/s AV maxP.02 mmHg AR Vmax: 1.61 m/s AR maxP.33 mmHg AR PHT: 517 ms AR Dec Time: 1782 ms AR Dec [place]: 0.9 m/s TR Vmax: 2.52 m/s TR maxP.43 mmHg RAP: 5.00 mmHg RVSP: 30.43 mmHg MV EF SLOPE: 85.49 mm/s (70 - 150) MV EXCURSION: 19.09 mm (> 18.000) RV S Prime: 0.14 m/s TAPSE: 24.64 mm FINDINGS -------- This was a technically good study. The left ventricular size is normal. There is mild concentric left ventricular hypertrophy. Overa ll left ventricular systolic function is normal with, an EF between 55 - 60 %. Normal LAP Grade 1 D iastolic Dysfunction. The right ventricle is normal in size. The left atrial size is normal. Normal LA size by volume 22+/-6 ml/m2. The right atrial size is normal. The aortic valve is trileaflet and appears structurally normal. Trace amount of aortic regurgitatio n. The mitral valve is normal. The mitral valve leaflets are mildly thickened. Mild mitral annular c alcification present. Mild mitral regurgitation is present. The tricuspid valve appears structurally normal. [id number] tricuspid regurgitation present. Right ventricular systolic pressure is normal at < 35 mmHg. There is no pulmonic regurgitation present. The aortic root size is normal. There is no pericardial effusion. CONCLUSIONS -------- 1. The left ventricular size is normal. 2. There is mild concentric left ventricular hypertrophy. 3. Overall left ventricular systolic function is normal with, an EF between 55 - 60 %. 4. Normal LAP Grade 1 Diastolic Dysfunction. 5. Trace amount of aortic regurgitation. 6. The mitral valve leaflets are mildly thickened. 7. Mild mitral annular calcification present. 8. Mild mitral regurgitation is present. 9. [id number] tricuspid regurgitation present. 10. There is no pericardial effusion. GROUP LEADER: Gillian Lucero RDCS
== END 2021-08-31 18:42 | disposition home or self-care (01) ==
LOC: EC 13:21 → 6NMEDSUR 16:27 → 3SCARD 16:40
PROVIDERS: ADMIT Internal Medicine; ATTEND Internal Medicine
DX: R07.89 Other chest pain (principal); E78.5 Hyperlipidemia, unspecified; K76.0 Fatty (change of) liver, not elsewhere classified; R00.1 Bradycardia, unspecified; I10 Essential (primary) hypertension; R10.13 Epigastric pain; R11.2 Nausea with vomiting, unspecified; R61 Generalized hyperhidrosis; R42 Dizziness and giddiness; I08.1 Rheumatic disorders of both mitral and tricuspid valves; H53.8 Other visual disturbances; M79.7 Fibromyalgia; W19.XXXA Unspecified fall, initial encounter; I25.10 Atherosclerotic heart disease of native coronary artery without angina pectoris; K58.9 Irritable bowel syndrome, unspecified; M48.00 Spinal stenosis, site unspecified; F31.9 Bipolar disorder, unspecified; Z79.899 Other long term (current) drug therapy; Z79.82 Long term (current) use of aspirin; Z88.5 Allergy status to narcotic agent; Z88.0 Allergy status to penicillin; Z96.651 Presence of right artificial knee joint; Z87.891 Personal history of nicotine dependence; Z80.9 Family history of malignant neoplasm, unspecified
CPT/HCPCS: 96366 ×3; 96365; 99285; 36415; 93005; 93306; 93458; 80061; 80053; 80048; 84443; 82607; 83690; 83735; 84100; 84484; 85025 ×2; 85610; 85730; 83036; 71046; 76700; 70450; G0378 ×4; C1894; J2250; J2001; J3010; J1644; J1170; Q9967